=== PATIENT | male | born 1945 | race Caucasian/White ===

== ENCOUNTER 2017-10-08 10:13 | Outpatient (CLI) | payer MEDICARE, OTHER ==
--- NOTE | 2017-10-08 12:04 | CT ---
CT ABDOMEN AND PELVIS WITH AND WITHOUT IV CONTRAST: History: Abdominal pain. Crohn's disease. Prior surgeries. Comparison: 07-06-16 FINDINGS: Mild atelectasis and parenchymal scarring remain at each lung base. Hyperdense stone is apparent with in the gallbladder lumen. The spleen, kidneys, adrenal glands, and pancreas are within normal limits. Nonenlarged lymph nodes are scattered about the mesentery and retroperitoneum. Urinary bladder is de compressed. There is no evidence of bowel obstruction. Post-operative changes are apparent. Involving the distal ileum and extending to the terminal ileum, there is dilatation to 2.3 cm without significant wall thi ckening. At the level of the terminal ileum, there is circumferential wall thickening with subtle adj acent stranding and narrowing of the bowel lumen. No free air or abscess are apparent. Scattered diverticula arise from the colon without adjacent inflammation. There are prominent degener ative changes of the lumbar spine. IMPRESSION: 1. Inflammation of the distal ileum and terminal ileum with terminal ileal stricture. No significant obstruction. Appearance is typical for Crohn's disease. 2. Cholelithiasis. POS: IWONA
== END 2017-10-08 10:14 | disposition home or self-care (01) ==
LOC: CT 10:13
PROVIDERS: ATTEND Dentist Oral and Maxillofacial Surgery
DX: K50.90 Crohn's disease, unspecified, without complications (principal); K80.20 Calculus of gallbladder without cholecystitis without obstruction; K52.89 Other specified noninfective gastroenteritis and colitis
CPT/HCPCS: 74178

== ENCOUNTER 2017-12-30 08:32 | Outpatient (CLI) | payer MEDICARE, OTHER ==
--- NOTE | 2017-12-30 12:26 | RAD ---
SMALL BOWEL SERIES: Date: 12/30/17 HISTORY: Crohn's disease of the small intestine. Multiple surgeries. COMPARISON: 08/29/03. CORRELATION: Abdomen and pelvis CT dated 10/08/17. FINDINGS: Initial line up examiner radiograph demonstrates a large gallstone in the right upper quadrant, unchanged. Patie nt was administered barium, which does pass from the residual small bowel into the right hemicolon. T here is moderate dilatation of the remaining distal small bowel loops. This dilatation is just proxim al to a long segment area of narrowing. This area of narrowing appears to be involving the terminal i leum. The cecum and cecal apex are grossly unremarkable. IMPRESSION: Long segment narrowing of the distal ileum/terminal ileum. There is associated prominence of the smal l bowel loops proximal to this area of narrowing. No evidence of high grade obstruction as barium pas ses into the right hemicolon. This area of abnormality corresponds to findings on recent CT. POS: IWONA
== END 2017-12-30 08:33 | disposition home or self-care (01) ==
LOC: RAD 08:32
PROVIDERS: ATTEND Internal Medicine Gastroenterology
DX: K50.00 Crohn's disease of small intestine without complications (principal); K56.699 Other intestinal obstruction unspecified as to partial versus complete obstruction; K56.2 Volvulus
CPT/HCPCS: 74250

== ENCOUNTER 2018-01-09 09:12 | Inpatient (IN) | payer MEDICARE, OTHER ==
[~2018-01-09 09:12] MED LIST: ISOVUE-370 76%-LOCM 1 ML ONE
[2018-01-09 09:59] LABS: #Eosinphils 0.1 thou/uL (0.0-0.7); #Lymphocytes 0.9 thou/uL (1.20-3.40); #Monocytes 0.5 thou/uL (0.11-0.59); #Neutrophils 9.2 thou/uL (1.40-6.50); %Basophils 0.4 % (0.0-1.0); %Eosinophils 0.9 % (0.0-10.0); %Lymphocytes 8.4 % (21.0-51.0); %Monocytes 4.7 % (0.0-10.0); %Neutrophils 85.6 % (42.0-75.0); Hemoglobin 12.7 g/dL (14.0-18.0); Mean Corpuscular HGB CONC 32.2 g/dL (32.0-36.0); Mean Corpuscular Hemoglobin 30.3 pg (27.0-31.0); Mean Platelet Volume 6.8 fL (7.4-10.4); Platelet Count 257 thou/uL (130-400); RBC Distribution Width 15.2 % (11.5-14.5); White Blood Cell (WBC) Count 10.8 thou/uL (4.8-10.8)
[2018-01-09] MEDS ORDERED: Acetaminophen 325 MG TAB ONE (10:08)
[2018-01-09 10:20] LABS: ALT (SGPT) 24 U/L (8-55); AST (SGOT) 22 U/L (5-34); Albumin 3.5 g/dL (3.4-4.8); Alkaline Phosphatase 86 U/L (40-150); Anion Gap 9 mmol/L (10-20); BUN (Urea Nitrogen) 11 mg/dL (8.4-25.7); Bilirubin, Total 1.2 mg/dL (0.2-1.2); CK (CPK) 91 U/L (30-200); Calc. Creatinine Clearance 0 mL/min (70-130); Calcium 8.7 mg/dL (7.8-10.44); Carbon Dioxide 28 mmol/L (23-31); Chloride 98 mmol/L (98-107); Estimated GFR-MDRD 67; Glucose 96 mg/dL (83-110); Potassium 3.9 mmol/L (3.5-5.1); Protein, Total 6.5 g/dL (5.8-8.1); Sodium 131 mmol/L (136-145)
[2018-01-09 11:09] LABS: Bilirubin Small (Negative); Blood, Urine Negative (Negative); Glucose, Urine (Dipstick) Negative (Negative); Leukocyte Negative (Negative); Nitrite Negative (Negative); Protein, Urine (Dipstick) Negative (Neg-Trace); Urobilinogen 0.2 mg/dL (0.2-1.0); pH, Urine 7.5 (5.0-9.0)
[2018-01-09 11:10] LABS: Clarity Clear (Clear)
--- NOTE | 2018-01-09 11:38 | RAD ---
TWO VIEW CHEST: COMPARISON: 10/07/16. CLINICAL HISTORY: Fever. FINDINGS: There is abnormal biapical interstitial and pleural-based density. There is also a focal lucency wit hin the central left upper lung zone. An ovoid mass projects at the right upper lung zone, centrally . There is stable flattening and elevation of the right hemidiaphragm with blunting of the right cos tophrenic sulcus. Cardiac silhouette is stable. IMPRESSION: Abnormal biapical and upper lobe opacities including a mass-like opacity. This could be on the basis of pneumoconiosis versus other forms for atypical infection, or alternatively malignancy. Recommend pulmonary medicine consultation, as well as followup with CT of the chest. CODE T POS: IWONA
[2018-01-09] MEDS ORDERED: cefTRIAXone\\ROCEPHIN 2 GM VIAL ONE (12:28)
[2018-01-09] MEDS ORDERED: Azithromycin 500 MG VIAL ONE (12:28)
[2018-01-09] MEDS ORDERED: Sodium Chloride 0.9% 100 ML ONE (12:28)
--- NOTE | 2018-01-09 13:46 | CT ---
CTA CHEST WITH 3D VOLUME RENDERING: INDICATION: Fever. Abnormal chest radiograph performed same date. FINDINGS: No evidence of s significant filling defect to indicate pulmonary embolus. The thoracic aorta reveal s mild vascular calcification as do the coronary arteries. There is multifocal abnormal nodular parenchymal opacity as well as a mass-like area of opacification within the right upper lobe which contains small internal air bronchograms. Mass measures slightly greater than 4 cm in diameter. There is prominent pulmonary emphysema most notable within the bilate ral upper lobes. Emphysema within the left upper lobe is surrounded by ground-glass and nodular opac ities which does account for the cavitated appearance on preceding chest radiograph. There is a roun ded subpleural laterally located right lower lobe pulmonary nodule measuring 6 mm. Diffuse pleural i nterstitial prominence and ground-glass densities may relate to a superimposed fibrotic component of interstitial lung disease. There are bilateral pleural-based densities, more pronounced on the right . Incidental note of cholelithiasis. IMPRESSION: 1. No evidence of a pulmonary embolus. 2. Multifocal abnormality pulmonary parenchymal opacities including the mass-like area of consolidat ion at the right upper lobe. Findings may relate to atypical multifocal bilateral pneumonia. Other atypical etiologies for multinodular opacification including vasculidities should be excluded clinica lly. Malignancy is not excluded on the basis of this exam and therefore, followup upon completion of treatment regimen with CT thorax should be performed to document expected resolution. 3. Prominent pulmonary emphysema. 4. Incidental cholelithiasis. POS: IWONA
--- NOTE | 2018-01-09 14:35 | HP ---
PRIMARY CARE PHYSICIAN: Dr. Armando. CHIEF COMPLAINT: Fever and chills and generalized weakness. HISTORY OF PRESENT ILLNESS: Mr. Palomino is a pleasant 72-year-old gentleman that has a history of Cr ohn's disease. He was doing well until recently. He had some nausea and vomiting and had seen his g astroenterologist, Dr. Johnson with regards to this. There was concern that it could be a flare of his Crohn's disease and they did some lab work and then result the results of that showed some increase i nflammation and he was placed on a high dose of steroids with a rapid taper. 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 He had to trim some hedges a nd leaves and was sweating and working really hard. He had to do this in 3 days in a row and then on the last day, he felt kind of feverish and had some chills. He also noted some fever and the follow ing morning, he was so weak that he could barely get out of bed. His took his temperature and i t was 102.2 and for this reason, he came to the emergency room for evaluation. In the ER, he was fou nd to have some changes on his chest x-ray with some apical mass-like lesion. A CT angiogram was don e for further clarity on the chest x-ray findings and it was found that he has multifocal pneumonia a nd he is being admitted for this. The patient denies having any chest pain. He denies any cough or shortness of breath. He has maintained a fairly good appetite and denies any weight loss. REVIEW OF SYSTEMS: CONSTITUTIONAL: He has had subjective fever and chills, but no night sweats, no weight loss. HEENT: No headaches, no dizziness, no visual changes, no sore throat, rhinorrhea, neck pain, no adenopathy. PULMONARY: As per the history of present illness. Again, he denies any short ness of breath. No hemoptysis, no cough. CARDIOVASCULAR: No chest pain, no shortness of breath, no PND, no orthopnea. No lower extremity edema, no PND. GASTROINTESTINAL: He had some nausea and vom iting which has improved. He says that he believes that the vomiting and nausea was due to cholestyr amine which he had been taking for years, but he says it was starting to cause some constipation and he has since improved since discontinuing it. MUSCULOSKELETAL: No muscle pains, weakness or joint p ains. NEUROLOGIC: No focal weakness, numbness, no seizures. PSYCHIATRIC: No symptoms of anxiety o r depression. SKIN AND INTEGUMENT: No skin changes. No rash. PAST MEDICAL HISTORY: Significant for Crohn's disease, vitamin B12 deficiency and also has a history of pulmonary embolism which was diagnosed in 2016. PAST SURGICAL HISTORY: He has had colectomy. ALLERGIES: SULFA and OAK TREES. FAMILY HISTORY: Significant for lung cancer in his father as well as supranuclear palsy in his mothe r. SOCIAL HISTORY: He is a former smoker. He continues to do smoke E-cigarettes. No alcohol use. He is and his is his surrogate decision maker and he would like to be a FULL CODE. CURRENT MEDICATIONS: Include balsalazide 750 mg 3 times a day, prednisone he says he is on 15 mg dos e, Zyrtec 10 mg daily, vitamin B12 at 1000 mcg injection every 2 weeks, vitamin D3 1000 units daily, Centrum Silver, and Align 4 billion units daily. PHYSICAL EXAMINATION: VITAL SIGNS: Blood pressure has been on the lower side of 91/47, heart rate 87, respiratory rate of 20, temperature was 100.2. HEENT: He is actually well-developed and well-nourished. He appears to be in no acute distress. He states he has no symptoms related to the blood pressure being low and says lot of times his blood pr essure does tend to be on the lower side. HEENT: Pupils are equal, round, and reactive. Extraocular muscles are intact. Sclerae are anicteri c. Throat; no erythema, no exudates. NECK: No adenopathy, no bruits. LUNGS: Essentially clear to auscultation, no wheezing, no rales. CARDIOVASCULAR: He has a normal S1, S2. No S3 or S4. No murmurs, clicks or rubs. ABDOMEN: Soft, it is nontender, nondistended. Positive for bowel sounds. There is no rebound, no g uarding. EXTREMITIES: There is no clubbing, cyanosis, no edema. NEUROLOGIC: Neurologically, the exam is nonfocal. LABORATORY DATA AND IMAGING DATA: White blood cell count was 10.8, hemoglobin 12.7, hematocrit is 39 .5 and platelet count is 257. Sodium 131, potassium 3.9, chloride is 98, CO2 is 28, BUN of 11, creat inine 1.08, glucose is 96. C-reactive protein was 8.8. His chest x-ray had some changes associated with chronic obstructive pulmonary disease with flattening of the diaphragms. There was also an ovoi d mass in the right upper lung and there was some blunting of the right costophrenic angle. ASSESSMENT: 1. This is a pleasant 72-year-old gentleman who presents to the emergency room with fever and chills . His white count is normal, but he does have a left shift and he had radiographic evidence of a pos sible infiltrate; however, the shape and location of which are somewhat unusual, for this reason he i s being brought into the hospital. We will treat him for community-acquired pneumonia in that he has not had any recent hospitalizations and blood cultures have been obtained in the ER. We will also c onsult Pulmonology given the unusual characteristics of the pneumonia on chest x-ray and CT scan. 2. For Crohn's disease, the patient is currently undergoing a rapid taper. We will continue 15 mg a nd then likely just taper him daily by 5 mg as he is almost completed the taper. The patient will al so be placed on deep venous thrombosis and gastrointestinal prophylaxis.
[2018-01-09] MEDS ORDERED: Ondansetron ODT 4 MG TAB SL PRN (15:02)
[2018-01-09] MEDS ORDERED: Ondansetron HCl/PF 4 MG/2 ML Vial IVP PRN ×2 (15:02→15:33)
[2018-01-09] MEDS ORDERED: Sodium Chloride 0.9% 1,000 ML IV SCH (15:02)
[2018-01-09] MEDS ORDERED: Acetaminophen 325 MG TAB PO PRN ×2 (15:02→15:33)
[2018-01-09] MEDS ORDERED: Ondansetron ODT 4 MG TAB PO PRN (15:33)
[2018-01-09] MEDS ORDERED: cefTRIAXone\\ROCEPHIN 1 GM in Sodium Chloride 0.9% 100 ML IVPB SCH (15:33)
[2018-01-09] MEDS ORDERED: HYDROcodone/Acetaminophen 5/325 mg Tablet PO PRN (15:33)
[2018-01-09] MEDS ORDERED: Mag-Al 1200 mg/1200 mg/30 ML UDCUP PO PRN (15:33)
[2018-01-09] MEDS ORDERED: Sodium Chloride 0.9% 500 ML IV SCH (15:33)
[2018-01-09] MEDS: Sodium Chloride 0.9% 1,000 ML IV SCH (16:10)
[2018-01-09] MEDS ORDERED: FLU VACC TS2017-18 (>65YR) 0.5 ML SYRINGE IM ONE (16:15)
[2018-01-09] MEDS: Famotidine 20 MG TAB PO SCH (21:45)
[2018-01-10 05:52] LABS: #Eosinphils 0.1 thou/uL (0.0-0.7); #Lymphocytes 1.1 thou/uL (1.20-3.40); #Monocytes 0.3 thou/uL (0.11-0.59); #Neutrophils 8.3 thou/uL (1.40-6.50); %Basophils 0.2 % (0.0-1.0); %Eosinophils 1.4 % (0.0-10.0); %Lymphocytes 10.8 % (21.0-51.0); %Monocytes 2.8 % (0.0-10.0); %Neutrophils 84.8 % (42.0-75.0); Mean Corpuscular HGB CONC 32.5 g/dL (32.0-36.0); Mean Corpuscular Hemoglobin 30.3 pg (27.0-31.0); Mean Corpuscular Volume 93.4 fl (80.0-94.0); Platelet Count 203 thou/uL (130-400); Red Blood Cell (RBC) Count 3.63 mill/uL (4.70-6.10); White Blood Cell (WBC) Count 9.7 thou/uL (4.8-10.8)
[2018-01-10] MEDS: Sodium Chloride 0.9% 1,000 ML IV SCH ×3 (06:03→19:53)
[2018-01-10 06:18] LABS: Anion Gap 10 mmol/L (10-20); BUN (Urea Nitrogen) 9 mg/dL (8.4-25.7); Calc. Creatinine Clearance 70 mL/min (70-130); Calcium 7.9 mg/dL (7.8-10.44); Carbon Dioxide 22 mmol/L (23-31); Chloride 105 mmol/L (98-107); Estimated GFR-MDRD Greater than 90; Glucose 80 mg/dL (83-110); Potassium 3.6 mmol/L (3.5-5.1); Sodium 133 mmol/L (136-145)
[2018-01-10] MEDS ORDERED: Diphenoxylate HCl/Atropine Tablet PO PRN (07:13)
[2018-01-10] MEDS ORDERED: Eucerin (Mineral Oil/Petrolatum,White) 30 gm Jar TOP PRN (07:13)
[2018-01-10] MEDS ORDERED: Zolpidem Tartrate 5 MG TAB PO PRN (07:13)
[2018-01-10] MEDS ORDERED: Diabetic Tussin 200 MG/10 ML UDCUP PO PRN (07:13)
[2018-01-10] MEDS ORDERED: hydrALAZINE 20 MG/ML VIAL SLOW IVP PRN (07:13)
[2018-01-10] MEDS ORDERED: Sodium Chloride 0.65% Nasal 44 ML BOT EA NARE PRN (07:13)
[2018-01-10] MEDS ORDERED: Milk Of Magnesia 30 ML UDCUP PO PRN (07:13)
[2018-01-10] MEDS ORDERED: Loratadine 10 MG TAB PO PRN (07:13)
[2018-01-10] MEDS ORDERED: Senokot 8.6 MG TAB PO PRN (07:13)
[2018-01-10] MEDS ORDERED: Loperamide HCl 2 MG CAP PO PRN (07:13)
[2018-01-10] MEDS ORDERED: Artificial Tears 18 DROP/0.9 ML EA EYE PRN (07:13)
[2018-01-10] MEDS ORDERED: Chloraseptic Spray 180 ml Bottle PO PRN (07:13)
[2018-01-10] MEDS ORDERED: predniSONE 5 MG TAB PO SCH (08:00)
[2018-01-10] MEDS: Enoxaparin Sodium 40 MG/0.4 ML SYRINGE SC SCH (08:15)
[2018-01-10] MEDS ORDERED: Non-Formulary Item 1 EACH (Multivit-Min/Fa/Lycopen/Lutein [Centrum Silver Tablet] 1 TAB) PO SCH (09:00)
[2018-01-10] MEDS ORDERED: Non-Formulary Item 1 EACH (Bifidobacterium Infantis [Align] 4 MG) PO SCH (09:00)
[2018-01-10] MEDS ORDERED: Bifidobacterium Infantis [Align] 4 MG PO SCH (09:00)
[2018-01-10] MEDS ORDERED: FLU VACC TS2017-18 (>65YR) 0.5 ML SYRINGE IM ONE (09:00)
[2018-01-10] MEDS: Calcium Carbonate 600 MG TAB PO SCH (09:28)
[2018-01-10] MEDS: Famotidine 20 MG TAB PO SCH ×2 (09:29→19:51)
[2018-01-10] MEDS: Multivit, Therapeutic 1 TAB PO SCH (09:29)
--- NOTE | 2018-01-10 09:29 | CON ---
DATE OF CONSULTATION: 01/10/2018 SERVICE: Pulmonary Medicine. REASON FOR CONSULTATION: Pneumonia. HISTORY OF PRESENT ILLNESS: The patient is a 72-year-old white male with past medical history significant for Crohn's disease. Roughly 2-3 weeks ago, he started a new medication for the Crohn's disease. He had a little Crohn's flare. Apparently that was treated with a rapid steroid taper. Either way, all of that business improved. Roughly 1-2 days prior to presentation, he started having onset of fevers, malaise, and little myalgia. It came on in the context of him working outside. He just thought it was little dehydrated. That being said, he started running fevers to 102 degrees. He ultimately came to the emergency department. He was discovered to have findings consistent with pneumonia. As such, he was started on antibiotics. His strength seems to have improved at this point. He denies any fevers, chills, nausea, vomiting, or chest discomfort. Otherwise, there has been no interval change to his condition. PAST MEDICAL HISTORY: 1. Crohn's disease. 2. Vitamin B12 deficiency. 3. History of pulmonary embolism in 2016 status post over a year of anticoagulation, stopped in 06/2017. PAST SURGICAL HISTORY: Colectomy. ALLERGIES: SULFA, OAK TREES. MEDICATIONS: List of his inpatient and outpatient medications was reviewed. No specific updates were made at this time. SOCIAL HISTORY: He is a former smoker, but quit about 3-4 years ago. He now uses E-cigarettes on a daily basis. He denies any alcohol or illicit drug use. He has no exposure to chemicals, dust asbestos or tuberculosis otherwise. REVIEW OF SYSTEMS: General, head, ears, eyes, nose, throat, cardiovascular, respiratory, GI, , musculoskeletal, neurologic and skin is negative except as mentioned in the HPI. PHYSICAL EXAMINATION: VITAL SIGNS: Afebrile currently, but there was T-max overnight of 101.1, pulse 74, blood pressure 114/58, respirations 18, saturation 97% on room air. GENERAL: The patient is awake, alert, no apparent distress. LUNGS: Excellent air entry. There is no prolonged expiratory phase, wheezing, rhonchi or crackles. HEART: Normal rate and regular. ABDOMEN: Soft, nontender, nondistended. Bowel sounds are positive. MUSCULOSKELETAL: No cyanosis or clubbing. There is no pitting in the bilateral lower extremities. NEUROLOGIC: Grossly nonfocal. LABORATORY DATA: Sodium 133 and up trending. Basic metabolic profile is otherwise unremarkable. Liver function studies are normal. Lactate is negative. His CRP is 8.8. WBC 9.7, hemoglobin 11.0 and platelets 203,000. Urinalysis is unremarkable. Blood cultures x2 are negative. Influenza A and B is negative. IMAGIN. CT of the chest demonstrates multifocal infiltrates. There is a nodular infiltrate located in the right upper lobe. This is in the posterior segment of the right upper lobe. He also has interstitial fullness in the bibasilar region, possibly consistent with interstitial inflammatory changes. There appears to be some element of emphysematous changes superimposed on top of that. 2. I have reviewed the CT scan from 2 years ago. At that time, he had a small nodular infiltrate in the posterior segment of the right upper lobe. ASSESSMENT: 1. Community-acquired pneumonia. 2. Pulmonary nodule versus infiltrate, most predominantly displayed in the posterior segment of the right upper lobe. 3. Crohn's disease with recent medication change. 4. E-cigarette use. DISCUSSION AND PLAN: The patient presented with acute infectious symptoms. As such, we treat him with a 7-day course of antibiotics. Once he clears his fever profile, he can be converted over to p.o. medications and discharged home. He will require a repeat CT scan in roughly 6 weeks. At that time, if this infiltrate persists, bronchoscopy with possible biopsy will need to be considered. E-cigarettes have been known to cause lipoid pneumonias as well as other things. That is certainly within our differential. The new medication he is taking does not have a known association with inflammatory lung conditions , but it is known to cause flu-like illness, as well as increase the risk of bronchoscopy pneumonias. Pulmonary will continue to follow while the patient remains in this location. Dr. Wang will assume coverage in the morning. 70 minutes have been devoted to this patient in various activities. I personally reviewed all imaging studies and laboratory data noted within this document. For fifty percent of this time, I was interacting with the patient at the bedside or coordinating care with the care team. For the remainder of the time I was immediately available to the patient in the hospital unit. VERONIKA
--- NOTE | 2018-01-10 11:16 | PDOC.PN ---
- Subjective Encounter Start Date: 01/10/18 Encounter Start Time: 07:00 -: old records requested/rev Patient seen and examined. No new complaints. No overnight events feels better, on room air, no cough, fever reducing - Objective Resuscitation Status: Resuscitation Status FULL:Full Resuscitation MAR Reviewed: Yes Vital Signs & Weight: Vital Signs (12 hours) Temp Pulse Resp BP Pulse Ox 01/10/18 08:00 99.5 F 75 18 97/51 L 94 L 01/10/18 04:00 98.4 F 74 18 114/58 L 01/10/18 00:00 97 Weight Weight 124 lb 9 oz I&O: 01/09/18 01/10/18 01/11/18 06:59 06:59 06:59 Intake Total 240 Balance 240 Result Diagrams: 01/10/18 05:33 01/10/18 05:33 Radiology Reviewed by me: Yes (CT chest) Phys Exam - Physical Examination Constitutional: NAD HEENT: PERRLA, moist MMs, sclera anicteric Neck: no JVD, supple Respiratory: no wheezing, no rhonchi upper lobe broncheal breath sound Cardiovascular: RRR, no significant murmur, no rub Gastrointestinal: soft, non-tender, no distention, positive bowel sounds Musculoskeletal: no edema, pulses present Neurological: non-focal, normal sensation, moves all 4 limbs Lymphatic: no nodes Psychiatric: normal affect, A&O x 3 Skin: no rash, normal turgor Dx/Plan (1) Community acquired bacterial pneumonia Code(s): J15.9 - UNSPECIFIED BACTERIAL PNEUMONIA Status: Acute (2) Hyponatremia Code(s): E87.1 - HYPO-OSMOLALITY AND HYPONATREMIA Status: Acute (3) Anemia, normocytic normochromic Code(s): D64.9 - ANEMIA, UNSPECIFIED Status: Chronic (4) Crohn's disease Code(s): K50.90 - CROHN'S DISEASE, UNSPECIFIED, WITHOUT COMPLICATIONS Status: Chronic Comment: (5) History of deep venous thrombosis or pulmonary embolus Code(s): IQI6307 - Status: Chronic (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 * home medication reconciled * add florastor Review of Systems - Review of Systems Constitutional: fever. negative: chills, sweats, weakness, malaise, other ENT: negative: Ear Pain, Ear Discharge, Nose Pain, Nose Discharge, Nose Congestion, Mouth Pain, Mouth Swelling, Throat Pain, Throat Swelling, Other Respiratory: negative: Cough, Dry, Shortness of Breath, Hemoptysis, SOB with Excertion, Pleuritic Pain, Sputum, Wheezing Cardiovascular: negative: chest pain, palpitations, orthopnea, paroxysmal nocturnal dyspnea, edema, light headedness, other Gastrointestinal: negative: Nausea, Vomiting, Abdominal Pain, Diarrhea, Constipation, Melena, Hematochezia, Other Genitourinary: negative: Dysuria, Frequency, Incontinence, Hematuria, Retention , Other Musculoskeletal: negative: Neck Pain, Shoulder Pain, Arm Pain, Back Pain, Hand Pain, Leg Pain, Foot Pain, Other Skin: negative: Rash, Lesions, Fran, Bruising, Other Neurological: negative: Weakness, Numbness, Incoordination, Change in Speech, Confusion, Seizures, Other - Medications/Allergies Allergies/Adverse Reactions: Allergies Allergy/AdvReac Type Severity Reaction Status Date / Time Sulfa (Sulfonamide Allergy Verified 07/06/16 22:32 Antibiotics) Medications: Current Medications Acetaminophen (Tylenol) 650 mg PO Q4H PRN PRN Reason: Headache/Fever or Pain Hydrocodone Bitart/Acetaminophen (Ruffin 5/325) 1 tab PO Q4H PRN PRN Reason: Moderate Pain (4-6) Al Hydroxide/Mg Hydroxide (Maalox) 30 ml PO Q6H PRN PRN Reason: Heartburn or Indigestion Artificial Tears (Tears Naturale) 0 drop EA EYE PRN PRN PRN Reason: Dry Eyes Aspirin (Aspirin Chewable) 81 mg PO DAILY [facility] Last Admin: 01/10/18 09:29 Dose: 81 mg Balsalazide (Colazal) 2,250 mg PO TID [facility] Calcium Carbonate (Caltrate) 600 mg PO DAILY [facility] Last Admin: 01/10/18 09:28 Dose: 600 mg Diphenoxylate HCl/Atropine (Lomotil) 1 tab PO QIDPRN PRN PRN Reason: Diarrhea/Loose Stools Enoxaparin Sodium (Lovenox) 40 mg SC 0900 [facility] Last Admin: 01/10/18 08:15 Dose: 40 mg Famotidine (Pepcid) 20 mg PO BID [facility] Last Admin: 01/10/18 09:29 Dose: 20 mg Guaifenesin (Robitussin Sf) 200 mg PO Q4H PRN PRN Reason: Cough Hydralazine HCl (Apresoline) 10 mg SLOW IVP Q4H PRN PRN Reason: Systolic BP > 180 Azithromycin 500 mg/ Sodium (Chloride) 250 mls @ 250 mls/hr IVPB Q24HR@1400 [facility] Sodium Chloride (Normal Saline 0.9%) 1,000 mls @ 100 mls/hr IV .Q10H [facility] Last Admin: 01/10/18 08:21 Dose: 1,000 mls Ceftriaxone Sodium 1 gm/ (Syringe 0.4 ml/ Sterile Water) 10 mls @ 120 mls/hr SLOW IVP 1300 [facility] Loperamide HCl (Imodium) 2 mg PO PRN PRN PRN Reason: Diarrhea/Loose Stools Loratadine (Claritin) 10 mg PO DAILYPRN PRN PRN Reason: Sinus Symptoms Magnesium Hydroxide (Milk Of Magnesium) 30 ml PO DAILYPRN PRN PRN Reason: Constipation Mineral Oil/White Petrolatum (Eucerin Cream) 0 gm TOP BIDPRN PRN PRN Reason: Dry Skin Multivitamins (Theragran) 1 tab PO DAILY [facility] Last Admin: 01/10/18 09:29 Dose: 1 tab Ondansetron HCl (Zofran Odt) 4 mg PO Q6H PRN PRN Reason: Nausea/Vomiting Ondansetron HCl (Zofran) 4 mg IVP Q6H PRN PRN Reason: Nausea/Vomiting Bifidobacterium Infantis [Align] 4 Mg 0 each PO DAILY [facility] Phenol (Chloraseptic [place] 180 Ml Bot) 0 ml PO PRN PRN PRN Reason: Sore Throat Senna (Senokot) 2 tab PO HSPRN PRN PRN Reason: Constipation Sodium Chloride ([place] Nasal [place] 0.65%) 0 ml EA NARE QIDPRN PRN PRN Reason: Nasal Congestion Sodium Chloride (Flush - Normal Saline) 10 ml IVF Q12HR [facility] Last Admin: 01/10/18 08:13 Dose: Not Given Sodium Chloride (Flush - Normal Saline) 10 ml IVF PRN PRN PRN Reason: Saline Flush Zolpidem Tartrate (Ambien) 5 mg PO HSPRN PRN PRN Reason: Insomnia
[2018-01-10] MEDS: cefTRIAXone\\ROCEPHIN 1 GM, Syringe 0.4 ML in Sterile Water 9.6 ML SLOW IVP SCH (13:00)
[2018-01-10] MEDS: Azithromycin 500 MG in Sodium Chloride 0.9% 250 ML 250 ML IVPB SCH (14:19)
[2018-01-11] MEDS: Sodium Chloride 0.9% 1,000 ML IV SCH ×3 (05:55→17:34)
[2018-01-11 05:56] LABS: #Eosinphils 0.1 thou/uL (0.0-0.7); #Lymphocytes 1.4 thou/uL (1.20-3.40); #Monocytes 0.4 thou/uL (0.11-0.59); #Neutrophils 4.3 thou/uL (1.40-6.50); %Basophils 0.4 % (0.0-1.0); %Eosinophils 1.7 % (0.0-10.0); %Lymphocytes 22.5 % (21.0-51.0); %Monocytes 6.5 % (0.0-10.0); Mean Corpuscular HGB CONC 31.6 g/dL (32.0-36.0); Mean Corpuscular Hemoglobin 30.6 pg (27.0-31.0); Mean Corpuscular Volume 96.9 fl (80.0-94.0); Mean Platelet Volume 7.4 fL (7.4-10.4); Platelet Count 177 thou/uL (130-400); Red Blood Cell (RBC) Count 3.25 mill/uL (4.70-6.10); White Blood Cell (WBC) Count 6.3 thou/uL (4.8-10.8)
[2018-01-11 06:30] LABS: Anion Gap 7 mmol/L (10-20); BUN (Urea Nitrogen) 8 mg/dL (8.4-25.7); Calc. Creatinine Clearance 80 mL/min (70-130); Calcium 7.9 mg/dL (7.8-10.44); Carbon Dioxide 23 mmol/L (23-31); Chloride 112 mmol/L (98-107); Estimated GFR-MDRD Greater than 90; Glucose 83 mg/dL (83-110); Potassium 3.3 mmol/L (3.5-5.1); Sodium 139 mmol/L (136-145)
[2018-01-11] MEDS: Calcium Carbonate 600 MG TAB PO SCH (08:54)
[2018-01-11] MEDS: Saccharomyces boulardii 250 MG CAP PO SCH (08:54)
[2018-01-11] MEDS: Multivit, Therapeutic 1 TAB PO SCH (08:54)
[2018-01-11] MEDS: Famotidine 20 MG TAB PO SCH ×2 (08:54→20:47)
[2018-01-11] MEDS: Enoxaparin Sodium 40 MG/0.4 ML SYRINGE SC SCH (08:55)
--- NOTE | 2018-01-11 10:05 | PDOC.PN ---
- Subjective Encounter Start Date: 01/11/18 Encounter Start Time: 07:20 Patient seen and examined. No new complaints. No overnight events - Objective Resuscitation Status: Resuscitation Status FULL:Full Resuscitation MAR Reviewed: Yes Vital Signs & Weight: Vital Signs (12 hours) Temp Pulse Resp BP Pulse Ox 01/11/18 04:00 97.6 F 01/10/18 23:24 97.5 F L 69 18 116/68 97 Weight Weight 136 lb I&O: 01/10/18 01/11/18 01/12/18 06:59 06:59 06:59 Intake Total 240 1390 Balance 240 1390 Result Diagrams: 01/11/18 05:32 01/11/18 05:32 Phys Exam - Physical Examination Constitutional: NAD HEENT: PERRLA, moist MMs, sclera anicteric Neck: no JVD, supple Respiratory: no wheezing, no rhonchi basal rales Cardiovascular: RRR, no significant murmur, no rub Gastrointestinal: soft, non-tender, no distention, positive bowel sounds Musculoskeletal: no edema, pulses present Neurological: non-focal, normal sensation, moves all 4 limbs Psychiatric: normal affect, A&O x 3 Skin: no rash, normal turgor Dx/Plan (1) Community acquired bacterial pneumonia Code(s): J15.9 - UNSPECIFIED BACTERIAL PNEUMONIA Status: Acute (2) Hyponatremia Code(s): E87.1 - HYPO-OSMOLALITY AND HYPONATREMIA Status: Acute (3) Anemia, normocytic normochromic Code(s): D64.9 - ANEMIA, UNSPECIFIED Status: Chronic (4) Crohn's disease Code(s): K50.90 - CROHN'S DISEASE, UNSPECIFIED, WITHOUT COMPLICATIONS Status: Chronic Comment: (5) History of deep venous thrombosis or pulmonary embolus Code(s): LRS7078 - Status: Chronic (6) Short bowel syndrome Code(s): 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 Review of Systems - Review of Systems ENT: negative: Ear Pain, Ear Discharge, Nose Pain, Nose Discharge, Nose Congestion, Mouth Pain, Mouth Swelling, Throat Pain, Throat Swelling, Other Respiratory: negative: Cough, Dry, Shortness of Breath, Hemoptysis, SOB with Excertion, Pleuritic Pain, Sputum, Wheezing Cardiovascular: negative: chest pain, palpitations, orthopnea, paroxysmal nocturnal dyspnea, edema, light headedness, other Gastrointestinal: negative: Nausea, Vomiting, Abdominal Pain, Diarrhea, Constipation, Melena, Hematochezia, Other Genitourinary: negative: Dysuria, Frequency, Incontinence, Hematuria, Retention , Other Musculoskeletal: negative: Neck Pain, Shoulder Pain, Arm Pain, Back Pain, Hand Pain, Leg Pain, Foot Pain, Other Skin: negative: Rash, Lesions, Fran, Bruising, Other - Medications/Allergies Allergies/Adverse Reactions: Allergies Allergy/AdvReac Type Severity Reaction Status Date / Time Sulfa (Sulfonamide Allergy Verified 07/06/16 22:32 Antibiotics) Medications: Current Medications Acetaminophen (Tylenol) 650 mg PO Q4H PRN PRN Reason: Headache/Fever or Pain Hydrocodone Bitart/Acetaminophen ([place] 5/325) 1 tab PO Q4H PRN PRN Reason: Moderate Pain (4-6) Al Hydroxide/Mg Hydroxide (Maalox) 30 ml PO Q6H PRN PRN Reason: Heartburn or Indigestion Artificial Tears (Tears Naturale) 0 drop EA EYE PRN PRN PRN Reason: Dry Eyes Aspirin (Aspirin Chewable) 81 mg PO DAILY [facility] Last Admin: 01/11/18 08:56 Dose: 81 mg Balsalazide (Colazal) 2,250 mg PO TID [facility] Last Admin: 01/11/18 08:53 Dose: 2,250 mg Calcium Carbonate (Caltrate) 600 mg PO DAILY [facility] Last Admin: 01/11/18 08:54 Dose: 600 mg Diphenoxylate HCl/Atropine (Lomotil) 1 tab PO QIDPRN PRN PRN Reason: Diarrhea/Loose Stools Enoxaparin Sodium (Lovenox) 40 mg SC 0900 [facility] Last Admin: 01/11/18 08:55 Dose: 40 mg Famotidine (Pepcid) 20 mg PO BID [facility] Last Admin: 01/11/18 08:54 Dose: 20 mg Guaifenesin (Robitussin Sf) 200 mg PO Q4H PRN PRN Reason: Cough Hydralazine HCl (Apresoline) 10 mg SLOW IVP Q4H PRN PRN Reason: Systolic BP > 180 Azithromycin 500 mg/ Sodium (Chloride) 250 mls @ 250 mls/hr IVPB Q24HR@1400 [facility] Last Admin: 01/10/18 14:19 Dose: 250 mls Sodium Chloride (Normal Saline 0.9%) 1,000 mls @ 100 mls/hr IV .Q10H [facility] Last Admin: 01/11/18 05:55 Dose: 1,000 mls Ceftriaxone Sodium 1 gm/ (Syringe 0.4 ml/ Sterile Water) 10 mls @ 120 mls/hr SLOW IVP 1300 [facility] Last Admin: 01/10/18 13:00 Dose: 10 mls Loperamide HCl (Imodium) 2 mg PO PRN PRN PRN Reason: Diarrhea/Loose Stools Loratadine (Claritin) 10 mg PO DAILYPRN PRN PRN Reason: Sinus Symptoms Magnesium Hydroxide (Milk Of Magnesium) 30 ml PO DAILYPRN PRN PRN Reason: Constipation Mineral Oil/White Petrolatum (Eucerin Cream) 0 gm TOP BIDPRN PRN PRN Reason: Dry Skin Multivitamins (Theragran) 1 tab PO DAILY [facility] Last Admin: 01/11/18 08:54 Dose: 1 tab Ondansetron HCl (Zofran Odt) 4 mg PO Q6H PRN PRN Reason: Nausea/Vomiting Ondansetron HCl (Zofran) 4 mg IVP Q6H PRN PRN Reason: Nausea/Vomiting Phenol (Chloraseptic [place] 180 Ml Bot) 0 ml PO PRN PRN PRN Reason: Sore Throat Saccharomyces Boulardii (Florastor) 250 mg PO DAILY [facility] Last Admin: 01/11/18 08:54 Dose: 250 mg Senna (Senokot) 2 tab PO HSPRN PRN PRN Reason: Constipation Sodium Chloride ([place] Nasal [place] 0.65%) 0 ml EA NARE QIDPRN PRN PRN Reason: Nasal Congestion Sodium Chloride (Flush - Normal Saline) 10 ml IVF Q12HR [facility] Last Admin: 01/11/18 08:56 Dose: Not Given Sodium Chloride (Flush - Normal Saline) 10 ml IVF PRN PRN PRN Reason: Saline Flush Last Admin: 01/10/18 13:09 Dose: 10 ml Zolpidem Tartrate (Ambien) 5 mg PO HSPRN PRN PRN Reason: Insomnia
[2018-01-11 11:19] VITALS: BMI 18.9
[2018-01-11] MEDS: cefTRIAXone\\ROCEPHIN 1 GM, Syringe 0.4 ML in Sterile Water 9.6 ML SLOW IVP SCH (11:26)
[2018-01-11] MEDS: Azithromycin 500 MG in Sodium Chloride 0.9% 250 ML 250 ML IVPB SCH (11:29)
--- NOTE | 2018-01-11 13:31 | DIS ---
DATE OF ADMISSION: 01/09/2018 DATE OF DISCHARGE: 01/11/2018 PRIMARY CARE PHYSICIAN: Dr. Alberto Armando. DISCHARGE DISPOSITION: Home. PRIMARY DISCHARGE DIAGNOSES: Community-acquired bacterial pneumonia, hyponatremia. SECONDARY DISCHARGE DIAGNOSES: Crohn's disease, history of deep venous thrombosis or pulmonary embol ism, short bowel syndrome, vitamin B12 deficiency. PRIMARY PROCEDURE/OPERATION: None. RADIOLOGICAL INVESTIGATION: Chest x-ray on admission showed biapical and upper lobe opacity. CT ang iography was negative for pulmonary embolism, but it did show multifocal opacity in the right upper l obe emphysema type of changes, cholelithiasis. SIGNIFICANT LABORATORY DATA: WBC 6.3, hemoglobin 10.0, platelet 177. Sodium 139, potassium 3.3, BUN 8, creatinine 0.74, calcium 7.9. LFT normal. CRP 8.8. Urinalysis normal. Blood culture negative, influenza negative. DISCHARGE MEDICATIONS: Aspirin 81 mg p.o. daily, azithromycin 250 mg p.o. daily for 5 days, balsalaz enrrique 750 mg p.o. t.i.d., align 4 mg p.o. daily, calcium carbonate 600 mg p.o. daily, Omnicef 300 mg p. o. b.i.d. for 7 days, vitamin B12 1000 mcg IM every 2 weeks, multivitamin 1 tablet p.o. daily. CONTRAINDICATIONS: None. CODE STATUS: FULL CODE. INPATIENT CONSULTANTS: Dr. Everett and Dr. Wang were following while in hospital. TEST RESULTS PENDING ON DISCHARGE: None. ALLERGIES: SULFA DRUGS. DISCHARGE PLAN: Post hospital, patient will follow up with Dr. Wang and primary care physician as w ell as Dr. Johnson as instructed. The patient will need repeat imaging upon followup visit. HOSPITAL COURSE: A 72-year-old male with above-mentioned medical problem who was admitted by Dr. Ghada garcia. Please see her H&P for further detail. The patient was having fever, chills, generalized weakn ess and cough. He was diagnosed with right upper lobe and multifocal pneumonia. The patient was adm itted to Oncology floor. He was treated with Rocephin and azithromycin. His fever subsided and the patient was feeling much better after antibiotic therapy. By the time of discharge, he was on room a ir. He was tolerating p.o. well and he was not having any complaints. The patient expressed wish to go home today. We are waiting for Dr. Wang to decide about his discharge plan. On discharge, we w ill consider changing to Omnicef to azithromycin. The patient will need repeat imaging. At this point, the patient is seen and examined at bedside today. Plan of care discussed with the marlon aguilar's as well and patient is medically stable for discharge as long as Pulmonary team is okay. Please see my progress note from today for further detail.
[2018-01-12] MEDS: Sodium Chloride 0.9% 1,000 ML IV SCH ×2 (02:58→12:58)
[2018-01-12 07:58] VITALS: BP 117/56; TEMP 97.9
[2018-01-12] MEDS: Calcium Carbonate 600 MG TAB PO SCH (08:57)
[2018-01-12] MEDS: Famotidine 20 MG TAB PO SCH (08:58)
[2018-01-12] MEDS: Saccharomyces boulardii 250 MG CAP PO SCH (08:59)
[2018-01-12] MEDS: Multivit, Therapeutic 1 TAB PO SCH (08:59)
[2018-01-12] MEDS: Enoxaparin Sodium 40 MG/0.4 ML SYRINGE SC SCH (09:00)
--- NOTE | 2018-01-12 12:58 | ADD-DIS ---
ADDENDUM This patient was planned for discharge yesterday, but he was waiting for Dr. Wang to come and see. This patient is otherwise medically stable. Today, he had diarrhea with antibiotic therapy and that is why I advised him to continue Imodium on as needed basis. This patient is stable. He is on room air. He is planned for discharge later on today. He will continue above-mentioned medication. Ther e is no change in discharge medication reconciliation.
[2018-01-12] MEDS: cefTRIAXone\\ROCEPHIN 1 GM, Syringe 0.4 ML in Sterile Water 9.6 ML SLOW IVP SCH (13:00)
--- NOTE | 2018-01-12 13:11 | PDOC.PN ---
- Subjective Encounter Start Date: 01/12/18 Encounter Start Time: 10:45 Patient seen and examined. No new complaints. No overnight events - Objective Resuscitation Status: Resuscitation Status FULL:Full Resuscitation MAR Reviewed: Yes Vital Signs & Weight: Vital Signs (12 hours) Temp Pulse Resp BP Pulse Ox 01/12/18 08:30 97.9 F 66 20 97 01/12/18 07:57 97.9 F 66 20 117/56 L 97 Weight Admit Weight 124 lb 9 oz Weight 136 lb I&O: 01/11/18 01/12/18 01/13/18 06:59 06:59 06:59 Intake Total 1390 2470 Balance 1390 2470 Result Diagrams: 01/11/18 05:32 01/11/18 05:32 Phys Exam - Physical Examination Constitutional: NAD HEENT: PERRLA, moist MMs, sclera anicteric Neck: no JVD, supple Respiratory: no wheezing, no rales, no rhonchi Cardiovascular: RRR, no significant murmur, no rub Gastrointestinal: soft, non-tender, no distention, positive bowel sounds Musculoskeletal: no edema, pulses present Neurological: non-focal, normal sensation, moves all 4 limbs Psychiatric: normal affect, A&O x 3 Skin: no rash, normal turgor Dx/Plan (1) Community acquired bacterial pneumonia Code(s): J15.9 - UNSPECIFIED BACTERIAL PNEUMONIA Status: Acute (2) Hyponatremia Code(s): E87.1 - HYPO-OSMOLALITY AND HYPONATREMIA Status: Acute (3) Anemia, normocytic normochromic Code(s): D64.9 - ANEMIA, UNSPECIFIED Status: Chronic (4) Crohn's disease Code(s): K50.90 - CROHN'S DISEASE, UNSPECIFIED, WITHOUT COMPLICATIONS Status: Chronic Comment: (5) History of deep venous thrombosis or pulmonary embolus Code(s): IML6231 - Status: Chronic (6) Short bowel syndrome Code(s): K91.2 - POSTSURGICAL MALABSORPTION, NOT ELSEWHERE CLASSIFIED Status: Chronic (7) Vitamin B12 deficiency Code(s): E53.8 - DEFICIENCY OF OTHER SPECIFIED B GROUP VITAMINS Status: Chronic - Plan cont current plan of care, plan discussed w/ family, continue antibiotics * medication reviewed as below * symptomatic treatment * continue current antibiotics * likely discharge today * imodium as needed for diarrhoea. Review of Systems - Review of Systems Constitutional: negative: fever, chills, sweats, weakness, malaise, other Eyes: negative: Pain, Vision Change, Conjunctivae Inflammation, Eyelid Inflammation, Redness, Other ENT: negative: Ear Pain, Ear Discharge, Nose Pain, Nose Discharge, Nose Congestion, Mouth Pain, Mouth Swelling, Throat Pain, Throat Swelling, Other Respiratory: negative: Cough, Dry, Shortness of Breath, Hemoptysis, SOB with Excertion, Pleuritic Pain, Sputum, Wheezing Cardiovascular: negative: chest pain, palpitations, orthopnea, paroxysmal nocturnal dyspnea, edema, light headedness, other Gastrointestinal: Diarrhea. negative: Nausea, Vomiting, Abdominal Pain, Constipation, Melena, Hematochezia, Other Genitourinary: negative: Dysuria, Frequency, Incontinence, Hematuria, Retention , Other Musculoskeletal: negative: Neck Pain, Shoulder Pain, Arm Pain, Back Pain, Hand Pain, Leg Pain, Foot Pain, Other Skin: negative: Rash, Lesions, Fran, Bruising, Other - Medications/Allergies Allergies/Adverse Reactions: Allergies Allergy/AdvReac Type Severity Reaction Status Date / Time Sulfa (Sulfonamide Allergy Verified 07/06/16 22:32 Antibiotics) Medications: Current Medications Acetaminophen (Tylenol) 650 mg PO Q4H PRN PRN Reason: Headache/Fever or Pain Hydrocodone Bitart/Acetaminophen ([place] 5/325) 1 tab PO Q4H PRN PRN Reason: Moderate Pain (4-6) Al Hydroxide/Mg Hydroxide (Maalox) 30 ml PO Q6H PRN PRN Reason: Heartburn or Indigestion Artificial Tears (Tears Naturale) 0 drop EA EYE PRN PRN PRN Reason: Dry Eyes Aspirin (Aspirin Chewable) 81 mg PO DAILY [facility] Last Admin: 01/12/18 08:59 Dose: 81 mg Balsalazide (Colazal) 2,250 mg PO TID [facility] Last Admin: 01/12/18 08:59 Dose: 2,250 mg Calcium Carbonate (Caltrate) 600 mg PO DAILY [facility] Last Admin: 01/12/18 08:57 Dose: Not Given Diphenoxylate HCl/Atropine (Lomotil) 1 tab PO QIDPRN PRN PRN Reason: Diarrhea/Loose Stools Enoxaparin Sodium (Lovenox) 40 mg SC 0900 [facility] Last Admin: 01/12/18 09:00 Dose: 40 mg Famotidine (Pepcid) 20 mg PO BID [facility] Last Admin: 01/12/18 08:58 Dose: Not Given Guaifenesin (Robitussin Sf) 200 mg PO Q4H PRN PRN Reason: Cough Hydralazine HCl (Apresoline) 10 mg SLOW IVP Q4H PRN PRN Reason: Systolic BP > 180 Azithromycin 500 mg/ Sodium (Chloride) 250 mls @ 250 mls/hr IVPB Q24HR@1400 [facility] Last Admin: 01/11/18 11:29 Dose: 250 mls Sodium Chloride (Normal Saline 0.9%) 1,000 mls @ 100 mls/hr IV .Q10H [facility] Last Admin: 01/12/18 12:58 Dose: 1,000 mls Ceftriaxone Sodium 1 gm/ (Syringe 0.4 ml/ Sterile Water) 10 mls @ 120 mls/hr SLOW IVP 1300 [facility] Last Admin: 01/12/18 13:00 Dose: 10 mls Loperamide HCl (Imodium) 2 mg PO PRN PRN PRN Reason: Diarrhea/Loose Stools Last Admin: 01/12/18 13:02 Dose: 2 mg Loratadine (Claritin) 10 mg PO DAILYPRN PRN PRN Reason: Sinus Symptoms Magnesium Hydroxide (Milk Of Magnesium) 30 ml PO DAILYPRN PRN PRN Reason: Constipation Mineral Oil/White Petrolatum (Eucerin Cream) 0 gm TOP BIDPRN PRN PRN Reason: Dry Skin Multivitamins (Theragran) 1 tab PO DAILY [facility] Last Admin: 01/12/18 08:59 Dose: 1 tab Ondansetron HCl (Zofran Odt) 4 mg PO Q6H PRN PRN Reason: Nausea/Vomiting Ondansetron HCl (Zofran) 4 mg IVP Q6H PRN PRN Reason: Nausea/Vomiting Phenol (Chloraseptic [place] 180 Ml Bot) 0 ml PO PRN PRN PRN Reason: Sore Throat Saccharomyces Boulardii (Florastor) 250 mg PO DAILY [facility] Last Admin: 01/12/18 08:59 Dose: 250 mg Senna (Senokot) 2 tab PO HSPRN PRN PRN Reason: Constipation Sodium Chloride ([place] Nasal [place] 0.65%) 0 ml EA NARE QIDPRN PRN PRN Reason: Nasal Congestion Sodium Chloride (Flush - Normal Saline) 10 ml IVF Q12HR [facility] Last Admin: 01/12/18 09:01 Dose: Not Given Sodium Chloride (Flush - Normal Saline) 10 ml IVF PRN PRN PRN Reason: Saline Flush Last Admin: 01/10/18 13:09 Dose: 10 ml Zolpidem Tartrate (Ambien) 5 mg PO HSPRN PRN PRN Reason: Insomnia
[2018-01-12] MEDS: Azithromycin 500 MG in Sodium Chloride 0.9% 250 ML 250 ML IVPB SCH (14:20)
== END 2018-01-12 16:42 | disposition home or self-care (01) | DRG 194 ==
LOC: ERS 09:12 → ONC 14:02
PROVIDERS: ADMIT Internal Medicine; ATTEND Internal Medicine
DX: Z86.711 Personal history of pulmonary embolism; E87.1 Hypo-osmolality and hyponatremia; J15.9 Unspecified bacterial pneumonia; E53.8 Deficiency of other specified B group vitamins; K50.90 Crohn's disease, unspecified, without complications; K91.2 Postsurgical malabsorption, not elsewhere classified; Z87.891 Personal history of nicotine dependence; D64.9 Anemia, unspecified
CPT/HCPCS: 36415; 71046; 71275; 80048; 80053; 81003; 82550; 83605; 85025; 86140; 87040; 87804; 90471; 90682; 94760; 96361; 96365; 96367; A4216; G0008; J0456; J0696; J1650; J7050; J8499; Q2036

== ENCOUNTER 2018-01-20 10:11 | Outpatient (CLI) | payer MEDICARE, OTHER ==
--- NOTE | 2018-01-20 11:30 | RAD ---
PA AND LATERAL CHEST RADIOGRAPH: Date: 01-20-18 History: Dyspnea. Comparison: 01-09-18 FINDINGS: There are increased interstitial and patchy parenchymal densities seen within the upper lobes bilater ally similar to the prior exam with greater parenchymal opacity within the right upper lobe. Again, f indings may be related to pneumonia and possibly atypical pneumonia. Follow up to complete resolution is recommended. There is stable pleural and parenchymal changes right lung base, probably related to small right pleural effusion and atelectasis. The cardiac silhouette and pulmonary vasculature are within normal limits. There is no other interval change. IMPRESSION: 1. Linear and patchy parenchymal opacities in the bilateral upper lobes with stable mass like opacity in the right upper lobe. These findings may be related to multifocal pneumonia and possibly atypical pneumonia. However, follow up to complete resolution is recommended to exclude neoplastic process. 2. Mild chronic lung changes. 3. Small right pleural effusion and atelectasis. POS: [facility]
== END 2018-01-20 10:12 | disposition home or self-care (01) ==
LOC: RAD 10:11
PROVIDERS: ATTEND Internal Medicine Critical Care Medicine
DX: R06.00 Dyspnea, unspecified (principal); J90 Pleural effusion, not elsewhere classified; J98.11 Atelectasis; R91.8 Other nonspecific abnormal finding of lung field
CPT/HCPCS: 71046

== ENCOUNTER 2018-01-22 18:36 | Inpatient (IN) | payer MEDICARE, OTHER ==
[2018-01-22 19:14] LABS: #Basophils 0.1 thou/uL (0.0-0.2); #Eosinphils 0.1 thou/uL (0.0-0.7); #Lymphocytes 1.1 thou/uL (1.20-3.40); #Monocytes 0.4 thou/uL (0.11-0.59); #Neutrophils 5.7 thou/uL (1.40-6.50); %Basophils 0.8 % (0.0-1.0); %Eosinophils 1.4 % (0.0-10.0); %Lymphocytes 14.7 % (21.0-51.0); %Monocytes 5.4 % (0.0-10.0); %Neutrophils 77.8 % (42.0-75.0); Mean Corpuscular Hemoglobin 30.2 pg (27.0-31.0); Mean Corpuscular Volume 94.4 fl (80.0-94.0); Mean Platelet Volume 6.4 fL (7.4-10.4); Platelet Count 524 thou/uL (130-400); RBC Distribution Width 14.5 % (11.5-14.5); Red Blood Cell (RBC) Count 3.96 mill/uL (4.70-6.10); White Blood Cell (WBC) Count 7.4 thou/uL (4.8-10.8)
--- NOTE | 2018-01-22 19:33 | RAD ---
SINGLE VIEW OF THE CHEST: 01/22/18 COMPARISON: 01/22/18, CT chest 01/09/18. HISTORY: Pneumonia with fever. Patient was recently hospitalized. FINDINGS: Single view of the chest shows a normal sized cardiomediastinal silhouette. Increased interstitial ma rkings are present. There appear to be air space opacity projecting over the upper lobes. One of thes e areas over the right upper lobe remains mass-like. This measures approximately 3.3 cm in size. No p leural effusion is seen. IMPRESSION: Bilateral upper lobe opacities may represent infiltrates. The lesion in the right upper lobe is suspi cious and close followup after treatment is recommended to exclude an underlying malignancy. POS: [facility]
[2018-01-22 19:36] LABS: ALT (SGPT) 10 U/L (8-55); AST (SGOT) 19 U/L (5-34); Albumin 3.4 g/dL (3.4-4.8); Alkaline Phosphatase 136 U/L (40-150); Anion Gap 16 mmol/L (10-20); BUN (Urea Nitrogen) 6 mg/dL (8.4-25.7); Bilirubin, Total 0.9 mg/dL (0.2-1.2); CK (CPK) 58 U/L (30-200); Calc. Creatinine Clearance 0 mL/min (70-130); Calcium 8.8 mg/dL (7.8-10.44); Carbon Dioxide 26 mmol/L (23-31); Chloride 99 mmol/L (98-107); Estimated GFR-MDRD Greater than 90; Globulin 3.7 g/dL (2.4-3.5); Glucose 99 mg/dL (83-110); Protein, Total 7.1 g/dL (5.8-8.1); Sodium 138 mmol/L (136-145)
[2018-01-22 19:39] LABS: CKMB 0.4 ng/mL (0-6.6); Potassium 2.5 mmol/L (3.5-5.1)
[2018-01-22] MEDS ORDERED: Acetaminophen 325 MG TAB ONE (20:03)
[2018-01-22] MEDS ORDERED: Piperacillin/Tazobactam 4.5 GM VIAL ONE (20:03)
[2018-01-22] MEDS ORDERED: Piperacillin/Tazobactam 4.5 GM in Sodium Chloride 0.9% 100 ML IVPB ONE (20:15)
[2018-01-22] MEDS ORDERED: Sodium Chloride 0.9% 1,000 ML IV SCH (21:30)
[2018-01-22] MEDS ORDERED: Ondansetron ODT 4 MG TAB PO PRN (21:53)
[2018-01-22] MEDS ORDERED: Acetaminophen 325 MG TAB PO PRN (21:53)
[2018-01-22] MEDS ORDERED: hydrALAZINE 20 MG/ML VIAL SLOW IVP PRN (21:53)
[2018-01-22] MEDS ORDERED: traMADol HCl 50 MG TAB PO PRN (21:53)
[2018-01-22] MEDS ORDERED: HYDROcodone/Acetaminophen 5/325 mg Tablet PO PRN (21:53)
[2018-01-22] MEDS ORDERED: Mag-Al 1200 mg/1200 mg/30 ML UDCUP PO PRN (21:53)
[2018-01-22] MEDS ORDERED: Ondansetron HCl/PF 4 MG/2 ML Vial IVP PRN (21:53)
[2018-01-22] MEDS ORDERED: Milk Of Magnesia 30 ML UDCUP PO PRN (21:53)
[2018-01-22] MEDS ORDERED: Potassium Chloride 20 MEQ TAB PO SCH (22:15)
[2018-01-22] MEDS ORDERED: VANCOMYCIN IVPB PRN (22:30)
[2018-01-22] MEDS: NS 0.9% w/ 40 MEQ KCL 1,000 ML IV SCH (22:45)
--- NOTE | 2018-01-23 00:36 | HP ---
DATE OF ADMISSION: 01/22/2018 PRIMARY CARE PHYSICIAN: Dr. Alberto Armando. REASON FOR ADMISSION: Recurrent fever and feeling weak. HISTORY OF PRESENT ILLNESS: Mr. Palomino is a very pleasant 72-year-old gentleman who actually just a dmitted about 2 weeks ago for very similar symptoms. He has a history of Crohn's disease as well as vitamin B12 deficiency and was recently discharged from the hospital for an admission for pneumonia w hich was community-acquired. He was released on 01/12/2018 and says that when he went home, he seeme d okay and in fact on Thursday, he started to feel so good that he wanted to go and run some errands. However, later on that evening, he did get a temperature of about 101. Then, on Thursday, he went and did some more shopping at a local [employer] and then on Thursday, he had gone to see Dr. Wang, hi s planning analyst in the office and he had noted that he was having some low-grade temperatures at [facility] t which they thought could be possibly due to Crohn's flareup. However, he continued to have low gra de temperature and then on the day of admission, he spiked a temperature up to 103. His called a neighbor who is also a hospice nurse. She checked his temperature and it was 102.7 and she listene d to his chest and noted some rattling in his chest and suggested that he come back to the hospital f or evaluation. It is also noted that he has had decreased appetite and generalized weakness, but he denies any cough or feeling congested. He denies any chest pain or shortness of breath, no nausea, n o vomiting, no diarrhea. He has no known history of TB exposure. He says that he has not been on an y type of biologic agent for his Crohn's disease and no sick contacts that he is aware of. He also s ays he stopped smoking the E-cigarettes after his last hospital admission. PAST MEDICAL HISTORY: Significant for Crohn's disease, vitamin B12 deficiency and pulmonary embolism , which was diagnosed in 2016. REVIEW OF SYSTEMS: Constitutional: He has had subjective and objective fever, no chills, no night s weats, but he has had poor appetite and some weight loss. HEENT: He denies any headaches, no dizzin ess, no visual changes, no sore throat, rhinorrhea, neck pain, no adenopathy. Pulmonary: As the his tory of present illness. He denies any hemoptysis and no cough. Cardiovascular: No chest pain, no shortness of breath, no PND, no orthopnea. No lower extremity edema, no PND. Gastrointestinal: He denies any abdominal pain, no nausea, no vomiting, no change in bowels. Genitourinary: No urinary f requency, hematuria, no hesitancy. Musculoskeletal: No muscle pains, weakness or joint pains. Neur ologic: No focal weakness, numbness, no seizures. Psychiatric: No symptoms of anxiety or depressio n. Skin and Integument: No skin changes. No rash. PAST SURGICAL HISTORY: He has had a colectomy. ALLERGIES: SULFA and OAK TREES. FAMILY HISTORY: Significant for lung cancer in his father and supranuclear palsy in his mother. SOCIAL HISTORY: He is a former smoker. He recently quit using e-cigarettes. No alcohol use. He is and his is the surrogate decision maker. He is a FULL CODE. CURRENT MEDICATIONS: Include multivitamin once a day, lactobacillus, Zyrtec, Caltrate 600 mg daily, balsalazide 3 capsules 3 times a day and aspirin 81 mg a day. PHYSICAL EXAMINATION: GENERAL: He is alert and oriented. He appears to be in no acute distress. VITAL SIGNS: Blood pressure was 95/54, heart rate 90, respiratory rate of 18, temperature is 99.3, O 2 sat is 92% on room air. HEENT: Pupils are equal, round, and reactive. Extraocular muscles are intact. His sclerae are anic teric. Throat, there is no erythema, no exudates. NECK: No adenopathy, no bruits. LUNGS: Clear to auscultation. He did have some faint crackles in the right base, but there was no w heezing, no rhonchi. CARDIOVASCULAR: He has a normal S1, S2. I did not appreciate an S3 or S4. No murmurs, clicks or ru bs. ABDOMEN: Soft, it is nontender, nondistended. Positive for bowel sounds. No rebound, no guarding. EXTREMITIES: There is no edema. NEUROLOGICALLY: Nonfocal. LABORATORY AND X-RAY FINDINGS: RESULTS: Sodium 138, potassium 2.5, chloride is 99, CO2 is 26, BUN o f 6, creatinine 0.81, glucose is 99, magnesium is 1.6. Lactic acid was 1.4. His white blood cell co unt 7.4, hemoglobin 12, hematocrit is 37.4, platelet count is 524. On his chest x-ray, his heart siz e is normal. He has bilateral upper lobe infiltrates in the right. It is around it like a mass, niall und it like infiltrate that is almost unchanged from previous admission. This is by my reading. ASSESSMENT AND PLAN: 1. This is a pleasant 72-year-old gentleman who presents to the emergency room with recurrent fever, generalized weakness and poor appetite. He also has a pneumonia which appears to have not resolved. He will be admitted once again to the hospital for recurrent pneumonia, again it is concerning the location and characteristics of the infiltrate on chest x-ray. We will therefore consult Pulmonary M edicine once again since he was recently hospitalized. We will change his antibiotics at this time t o ones that cover for a healthcare-associated pneumonia. We will also place him on a probiotic. 2. Hypokalemia. It is unclear why his potassium is low. In reviewing his records, he tends to run potassium on the lower side, it is possibly due to decreased oral intake and this will be replaced. 3. Crohn's disease. This appears to be quiescent and we can continue his usual medications for this and we will also be placing him on DVT prophylaxis given his prior history of deep venous thrombosis and pulmonary embolism.
[2018-01-23] MEDS: Piperacillin/Tazobactam 3.375 GM in Sodium Chloride 0.9% 100 ML IVPB SCH ×4 (01:04→20:05)
[2018-01-23 01:28] LABS: Troponin I 0.099 ng/mL (< 0.028)
[2018-01-23 04:20] LABS: #Eosinphils 0.2 thou/uL (0.0-0.7); #Monocytes 0.5 thou/uL (0.11-0.59); #Neutrophils 5.3 thou/uL (1.40-6.50); %Basophils 0.3 % (0.0-1.0); %Eosinophils 2.8 % (0.0-10.0); %Lymphocytes 14.3 % (21.0-51.0); %Monocytes 6.6 % (0.0-10.0); Hemoglobin 10.7 g/dL (14.0-18.0); Mean Corpuscular HGB CONC 32.7 g/dL (32.0-36.0); Mean Corpuscular Hemoglobin 30.5 pg (27.0-31.0); Mean Corpuscular Volume 93.3 fl (80.0-94.0); Mean Platelet Volume 6.3 fL (7.4-10.4); Platelet Count 437 thou/uL (130-400); RBC Distribution Width 14.4 % (11.5-14.5)
[2018-01-23 04:52] LABS: Anion Gap 9 mmol/L (10-20); BUN (Urea Nitrogen) 7 mg/dL (8.4-25.7); Calc. Creatinine Clearance 78 mL/min (70-130); Calcium 8.3 mg/dL (7.8-10.44); Carbon Dioxide 29 mmol/L (23-31); Chloride 104 mmol/L (98-107); Estimated GFR-MDRD Greater than 90; Glucose 90 mg/dL (83-110); Sodium 139 mmol/L (136-145)
[2018-01-23] MEDS: Calcium Carbonate 600 MG TAB PO SCH (08:59)
[2018-01-23] MEDS: Famotidine 20 MG TAB PO SCH ×2 (08:59→20:05)
[2018-01-23] MEDS: Loratadine 10 MG TAB PO SCH (08:59)
[2018-01-23] MEDS: Saccharomyces boulardii 250 MG CAP PO SCH (08:59)
[2018-01-23] MEDS: Enoxaparin Sodium 40 MG/0.4 ML SYRINGE SC SCH (08:59)
--- NOTE | 2018-01-23 10:41 | PDOC.PN ---
- Subjective Encounter Start Date: 01/23/18 Encounter Start Time: 09:45 Subjective: had temp of 100 this am, no chest pain or sob -: had his breakfast, no diarrhea now -: and daughter at bedside - Objective Resuscitation Status: Resuscitation Status FULL:Full Resuscitation MAR Reviewed: Yes Vital Signs & Weight: Vital Signs (12 hours) Temp Pulse Resp BP Pulse Ox 01/23/18 07:50 100.0 F H 92 20 101/57 L 93 L 01/23/18 03:07 99 F 83 20 106/56 L 94 L Weight Weight 133 lb 1.6 oz I&O: 01/22/18 01/23/18 01/24/18 06:59 06:59 06:59 Intake Total 825 Output Total 575 Balance 250 Result Diagrams: 01/23/18 03:49 01/23/18 03:49 Phys Exam - Physical Examination HEENT: PERRLA, moist MMs Neck: no JVD, supple Respiratory: no wheezing, no rales Cardiovascular: RRR, no significant murmur Gastrointestinal: soft, non-tender, positive bowel sounds Musculoskeletal: no edema, pulses present Neurological: non-focal, moves all 4 limbs Psychiatric: normal affect, A&O x 3 Dx/Plan (1) Community acquired bacterial pneumonia Code(s): J15.9 - UNSPECIFIED BACTERIAL PNEUMONIA Status: Acute (2) Sepsis Code(s): A41.9 - SEPSIS, UNSPECIFIED ORGANISM Status: Acute Qualifiers: Sepsis type: sepsis due to unspecified organism Qualified Code(s): A41.9 - Sepsis, unspecified organism (3) Demand ischemia of myocardium Code(s): I24.8 - OTHER FORMS OF ACUTE ISCHEMIC HEART DISEASE Status: Acute (4) Anemia, normocytic normochromic Code(s): D64.9 - ANEMIA, UNSPECIFIED Status: Chronic (5) Crohn's disease Code(s): K50.90 - CROHN'S DISEASE, UNSPECIFIED, WITHOUT COMPLICATIONS Status: Chronic Qualifiers: Digestive disease complication type: unspecified complication Comment: (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 per pulm advice * . Review of Systems - Medications/Allergies Allergies/Adverse Reactions: Allergies Allergy/AdvReac Type Severity Reaction Status Date / Time Sulfa (Sulfonamide Allergy Verified 01/22/18 21:19 Antibiotics) Medications: Current Medications Acetaminophen (Tylenol) 650 mg PO Q4H PRN PRN Reason: Headache/Fever or Pain Hydrocodone Bitart/Acetaminophen ([place] 5/325) 1 tab PO Q4H PRN PRN Reason: Moderate Pain (4-6) Al Hydroxide/Mg Hydroxide (Maalox) 30 ml PO Q6H PRN PRN Reason: Heartburn or Indigestion Aspirin (Aspirin Chewable) 81 mg PO DAILY [facility] Last Admin: 01/23/18 08:59 Dose: 81 mg Balsalazide (Colazal) 2,250 mg PO TID [facility] Last Admin: 01/23/18 09:01 Dose: 2,250 mg Calcium Carbonate (Caltrate) 600 mg PO DAILY [facility] Last Admin: 01/23/18 08:59 Dose: 600 mg Enoxaparin Sodium (Lovenox) 40 mg SC 0900 [facility] Last Admin: 01/23/18 08:59 Dose: 40 mg Famotidine (Pepcid) 20 mg PO BID [facility] Last Admin: 01/23/18 08:59 Dose: 20 mg Hydralazine HCl (Apresoline) 10 mg SLOW IVP Q4H PRN PRN Reason: Systolic BP > 180 Piperacillin Sod/Tazobactam (Sod 3.375 gm/ Sodium Chloride) 100 mls @ 200 mls/ hr IVPB 0200,0800,1400,2000 [facility] Last Admin: 01/23/18 08:59 Dose: 100 mls Vancomycin HCl 1 gm/ Device 200 mls @ 200 mls/hr IVPB 1100,2300 [facility] Potassium Chloride/Sodium Chloride (Ns 0.9% W/ 40 Meq Kcl) 1,000 mls @ 75 mls/ hr IV .[id number] [facility] Last Admin: 01/22/18 22:45 Dose: 1,000 mls Loratadine (Claritin) 10 mg PO DAILY [facility] Last Admin: 01/23/18 08:59 Dose: 10 mg Magnesium Hydroxide (Milk Of Magnesium) 30 ml PO DAILYPRN PRN PRN Reason: Constipation Miscellaneous Medication (Pharmacy To Dose) 1 each IVPB PRN PRN PRN Reason: PNEUMONIA Ondansetron HCl (Zofran Odt) 4 mg PO Q6H PRN PRN Reason: Nausea/Vomiting Ondansetron HCl (Zofran) 4 mg IVP Q6H PRN PRN Reason: Nausea/Vomiting Saccharomyces Boulardii (Florastor) 250 mg PO DAILY [facility] Last Admin: 01/23/18 08:59 Dose: 250 mg Tramadol HCl (Ultram) 50 mg PO Q4H PRN PRN Reason: Moderate Pain (4-6)
[2018-01-23] MEDS ORDERED: Vancomycin HCl 1 GM in Premix Bag 1 BAG IVPB SCH (11:00)
[2018-01-23 11:02] VITALS: BMI 18.6
[2018-01-23] MEDS: NS 0.9% w/ 40 MEQ KCL 1,000 ML IV SCH (11:16)
--- NOTE | 2018-01-23 17:28 | CON ---
DATE OF CONSULTATION: 01/23/2018 REASON FOR CONSULTATION: Abnormal EKG and positive troponins. HISTORY OF PRESENT ILLNESS: Mr. Palomino is a very pleasant 72-year-old white gentleman who comes to the hospital for fevers. He was in the hospital recently for this, was treated for pneumonia, was se nt home. This was just a few days ago, he came back because he noted that he continued to have fever s of 101 and felt really weak, so he was admitted and diagnosed with a recurrence of his pneumonia. He had an EKG that the computer called acute anterior ST elevation myocardial infarction; however, th is was not typical of ischemia, so this was not called and he was admitted for pneumonia. Troponins were drawn, they were slightly elevated, so Cardiology has been consulted for further evaluation and care. On my evaluation, Mr. Palomino denies any chest pain, tightness or pressure. He has only had fever an d weakness and some cough. PAST MEDICAL HISTORY: 1. Crohn's disease. 2. Vitamin B12 deficiency. 3. History of pulmonary embolism back in 2015. PAST SURGICAL HISTORY: Colectomy. OUTPATIENT MEDICATIONS: Include: 1. Multivitamin. 2. Lactobacillus. 3. Zyrtec. 4. Caltrate. 5. Balsalazide. 6. Aspirin 81 a day. ALLERGIES: SULFA DRUGS and OAK TREES. FAMILY HISTORY: Lung cancer in his father. SOCIAL HISTORY: Former smoker. No alcohol or drug use. REVIEW OF SYSTEMS: A 12-point review of systems was done and is all negative unless stated in the hi story of present illness. PHYSICAL EXAMINATION: VITAL SIGNS: Temperature 100.0 at home was up to 103, pulse 81, respiratory rate 16, sat 95% on room air, blood pressure 87/54, but it has been about 101/57. GENERAL: Awake, alert, oriented x3, in no distress. HEENT: Normocephalic, atraumatic. NECK: Supple. LUNGS: Have mild crackles at bilateral bases. CARDIOVASCULAR: S1, S2. No S3, S4. No murmurs, no rubs. ABDOMEN: Soft, positive bowel sounds. EXTREMITIES: No edema. SKIN: Warm and dry. LABORATORY DATA AND IMAGING: Laboratory work was reviewed. CBC was reviewed. Chemistries were revi ewed. Potassium was 2.5 at admission up to 3.0. Troponin has been 0.13, 0.09. BNP was 373. Chest x-ray was reviewed, bilateral upper lobe opacities, thought to be infiltrates. EKG was reviewed and shows ST elevations in V1 and V2. No reciprocal changes, elevations are actuall y more indicative of Brugada pattern. ASSESSMENT AND PLAN: 1. Uqf-UZ-kryucaf elevation myocardial infarction: Likely demand ischemia from his infectious proce ss. No indication for full anticoagulation at this time. 2. Abnormal EKG. This could be Brugada, however, at his age this may not be a big issue. We will c onsult Electrophysiology next week if he still here; however, this is not an acute issue at that time . 3. Pneumonia, recurrent per primary team. Thank you for letting us to participate in the care of your patient. We will follow.
--- NOTE | 2018-01-23 21:00 | CON ---
DATE OF CONSULTATION: 01/23/2018 HISTORY OF PRESENT ILLNESS: Mr. Palomino is a 72-year-old male. 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 He was recently hospitalized with a respiratory illness. He was discharged home after a few days with a diagnosis of pneumonia. He was seen in the office thi s last week and said he was feeling fine, although he had one temperature elevation to 102 prior to h is visit with me. His took his temperature on the day of admission and noticed it to be elevated, so she brought h im to the hospital. He denies cough, chest congestion or shortness of breath. He had a decreased appetite. His activity level has been down since his hospitalization in the last visit. I was encouraging him to be more active. His was very concerned that he is too active. He is otherwise unchanged. PAST MEDICAL HISTORY: 1. Remarkable for Crohn disease, with a recent flare based on lab work, but not based on bloody diar fiorella or abdominal cramping. 2. B12 deficiency. 3. History of pulmonary embolism after pneumonia in 2016. FAMILY HISTORY: Negative for lung disease in early age. SOCIAL HISTORY: Non-smoker, nondrinker. FAMILY HISTORY: Cancer. ALLERGIES: He reports an allergy to SULFA. SOCIAL HISTORY: He is a former smoker. He was using e-cigarettes recently. We discussed the possib ilities of pulmonary effects of e-cigarettes. He is in the office and then I asked him to just stay off of these to eliminate these as variable for contributing factors to his radiographic abnormalitie s. He has done so. REVIEW OF SYSTEMS: Ten-point review of systems otherwise negative. PHYSICAL EXAMINATION: GENERAL: He is very pleasant. He is absolutely in no distress. He did have shaking chills earlier. VITAL SIGNS: His temperature was not taken afterwards. His temperature maximum today is 100.0. He is afebrile now. Heart rate is 81, respiratory rate is 16, oximetry is 95% on room air and blood pre ssure 87/54. HEAD AND NECK: Unremarkable. LUNGS: Clear. HEART: Regular rhythm. S1 and S2 are normal. ABDOMEN: Soft and nontender. EXTREMITIES: Without clubbing, cyanosis or edema. NEUROLOGIC: Nonfocal. LABORATORY DATA: White count 7, hemoglobin 10.7 and platelets 437. Sodium 139, potassium 3, chlorid e 104, bicarbonate 29, BUN 7 and creatinine 0.7. IMPRESSION AND PLAN: Intermittent persistent fever, unclear etiology. His radiograph in my opinion has changed very little since his last radiograph. I would not expect a dramatic improvement if he h ad a pneumonia. Bronchiolitis obliterans is in the differential. I doubt he has an immunocompromise d host type infection or a fungal pneumonia. I do not feel he needs bronchoscopy or biopsies at this time, although we will follow his radiographic abnormalities as an outpatient with a followup CT in 4-6 weeks. I would recommend adding steroids to his antimicrobial regimen. I do not think his shaking chills earlier today are related to the vancomycin infusion. His vancomyc in has been discontinued as I do not believe that this is a Staphylococcal infection. He actually lo oks well other than the fever and looks exactly like he looked in the office earlier in the week. I met with the family and answered all of their questions and any other questions regarding what to do with him once he got home and I have explained over and over again that I can answer those questions at this time. We did discuss also the pulmonary manifestations of Crohn disease. He has never had this in the past, so it would be unusual for all of a sudden for him to have this ma nifestation of Crohn disease, but not impossible. This is a 50-minute consult. Greater than 50% of the time was spent on the unit coordinating care.
[2018-01-24] MEDS: NS 0.9% w/ 40 MEQ KCL 1,000 ML IV SCH (01:10)
[2018-01-24] MEDS: Piperacillin/Tazobactam 3.375 GM in Sodium Chloride 0.9% 100 ML IVPB SCH ×4 (01:10→20:51)
[2018-01-24 08:22] LABS: Anion Gap 9 mmol/L (10-20); BUN (Urea Nitrogen) 5 mg/dL (8.4-25.7); Calc. Creatinine Clearance 79 mL/min (70-130); Calcium 8.1 mg/dL (7.8-10.44); Carbon Dioxide 27 mmol/L (23-31); Chloride 107 mmol/L (98-107); Estimated GFR-MDRD Greater than 90; Glucose 76 mg/dL (83-110); Sodium 140 mmol/L (136-145)
[2018-01-24] MEDS: predniSONE 20 MG TAB PO SCH (08:33)
[2018-01-24] MEDS: Calcium Carbonate 600 MG TAB PO SCH (08:34)
[2018-01-24] MEDS: Famotidine 20 MG TAB PO SCH ×2 (08:34→21:56)
[2018-01-24] MEDS: Enoxaparin Sodium 40 MG/0.4 ML SYRINGE SC SCH (08:34)
[2018-01-24] MEDS: Loratadine 10 MG TAB PO SCH (08:35)
[2018-01-24] MEDS: Saccharomyces boulardii 250 MG CAP PO SCH (08:35)
--- NOTE | 2018-01-24 11:11 | PDOC.PN ---
- Subjective Encounter Start Date: 01/24/18 Encounter Start Time: 08:50 Subjective: feels better, is eating better -: no cough or sob - Objective Resuscitation Status: Resuscitation Status FULL:Full Resuscitation MAR Reviewed: Yes Vital Signs & Weight: Vital Signs (12 hours) Temp Pulse Resp BP Pulse Ox 01/24/18 07:49 97.8 F 68 16 98/56 L 98 01/24/18 04:00 97.6 F 67 18 111/66 93 L 01/24/18 00:00 98.0 F 70 18 105/59 L 95 Weight Admit Weight 133 lb Weight 134 lb 14.4 oz I&O: 01/23/18 01/24/18 01/25/18 06:59 06:59 06:59 Intake Total 825 1400 Output Total 575 775 Balance 250 625 Result Diagrams: 01/23/18 03:49 01/24/18 07:52 Phys Exam - Physical Examination HEENT: PERRLA, moist MMs Neck: no JVD, supple Respiratory: no wheezing, no rales Cardiovascular: RRR, no significant murmur Gastrointestinal: soft, non-tender, positive bowel sounds Musculoskeletal: no edema, pulses present Neurological: non-focal, moves all 4 limbs Psychiatric: normal affect, A&O x 3 Dx/Plan (1) Community acquired bacterial pneumonia Code(s): J15.9 - UNSPECIFIED BACTERIAL PNEUMONIA Status: Acute (2) Sepsis Code(s): A41.9 - SEPSIS, UNSPECIFIED ORGANISM Status: Acute Qualifiers: Sepsis type: sepsis due to unspecified organism Qualified Code(s): A41.9 - Sepsis, unspecified organism (3) Demand ischemia of myocardium Code(s): I24.8 - OTHER FORMS OF ACUTE ISCHEMIC HEART DISEASE Status: Acute (4) Anemia, normocytic normochromic Code(s): D64.9 - ANEMIA, UNSPECIFIED Status: Chronic (5) Crohn's disease Code(s): K50.90 - CROHN'S DISEASE, UNSPECIFIED, WITHOUT COMPLICATIONS Status: Chronic Qualifiers: Digestive disease complication type: unspecified complication Comment: (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 Review of Systems - Medications/Allergies Allergies/Adverse Reactions: Allergies Allergy/AdvReac Type Severity Reaction Status Date / Time Sulfa (Sulfonamide Allergy Verified 01/22/18 21:19 Antibiotics) vancomycin Allergy Verified 01/23/18 17:38 Medications: Current Medications Acetaminophen (Tylenol) 650 mg PO Q4H PRN PRN Reason: Headache/Fever or Pain Last Admin: 01/23/18 19:15 Dose: 650 mg Hydrocodone Bitart/Acetaminophen ([place] 5/325) 1 tab PO Q4H PRN PRN Reason: Moderate Pain (4-6) Al Hydroxide/Mg Hydroxide (Maalox) 30 ml PO Q6H PRN PRN Reason: Heartburn or Indigestion Aspirin (Aspirin Chewable) 81 mg PO DAILY [facility] Last Admin: 01/24/18 08:34 Dose: 81 mg Balsalazide (Colazal) 2,250 mg PO TID [facility] Last Admin: 01/24/18 08:34 Dose: 2,250 mg Calcium Carbonate (Caltrate) 600 mg PO DAILY [facility] Last Admin: 01/24/18 08:34 Dose: 600 mg Enoxaparin Sodium (Lovenox) 40 mg SC 0900 [facility] Last Admin: 01/24/18 08:34 Dose: 40 mg Famotidine (Pepcid) 20 mg PO BID [facility] Last Admin: 01/24/18 08:34 Dose: 20 mg Hydralazine HCl (Apresoline) 10 mg SLOW IVP Q4H PRN PRN Reason: Systolic BP > 180 Piperacillin Sod/Tazobactam (Sod 3.375 gm/ Sodium Chloride) 100 mls @ 200 mls/ hr IVPB 0200,0800,1400,2000 [facility] Last Admin: 01/24/18 08:33 Dose: 100 mls Loratadine (Claritin) 10 mg PO DAILY [facility] Last Admin: 01/24/18 08:35 Dose: 10 mg Magnesium Hydroxide (Milk Of Magnesium) 30 ml PO DAILYPRN PRN PRN Reason: Constipation Ondansetron HCl (Zofran Odt) 4 mg PO Q6H PRN PRN Reason: Nausea/Vomiting Ondansetron HCl (Zofran) 4 mg IVP Q6H PRN PRN Reason: Nausea/Vomiting Potassium Chloride (K-Dur) 40 meq PO BID-[facility] Prednisone (Prednisone) 40 mg PO QAM-[facility] Last Admin: 01/24/18 08:33 Dose: 40 mg Saccharomyces Boulardii (Florastor) 250 mg PO DAILY [facility] Last Admin: 01/24/18 08:35 Dose: 250 mg Tramadol HCl (Ultram) 50 mg PO Q4H PRN PRN Reason: Moderate Pain (4-6)
--- NOTE | 2018-01-24 13:32 | PRG ---
DATE OF SERVICE: 01/24/2018 SUBJECTIVE: Mr. Palomino had a temperature to 102 yesterday. He has been afebrile since midnight. OBJECTIVE: VITAL SIGNS: Oximetry is improved from 93% to 97% on room air. Blood pressure 115/65 and respirator y rate is 16. LUNGS: Remarkable for fine crackles at his bases. HEART: Regular rhythm. ABDOMEN: Soft. LABORATORY AND IMAGING DATA: CT of his chest, abdomen and pelvis was ordered. I really do not find any exam findings that would lead me to think that there would be a benefit from CAT scanning his who le body, so I will put this on hold. We will continue the antimicrobial therapy for now. His electr olytes are unremarkable. His potassium is 3. His renal function is normal with a creatinine of 0.7. PLAN: I have planned to discuss his care with Dr. Johnson since he follows his Crohn disease.
--- NOTE | 2018-01-24 16:12 | PDOC.CTH ---
Cardiology Progress Note - Subjective He is doing much better since abx and no more fever. - Objective Vital Signs Temp Pulse Resp BP Pulse Ox 01/24/18 15:14 98.2 F 76 16 100/56 L 98 01/24/18 11:34 98 F 73 16 115/65 97 01/24/18 07:49 97.8 F 68 16 98/56 L 98 Admit Weight 133 lb Weight 134 lb 14.4 oz 01/23/18 01/24/18 01/25/18 06:59 06:59 06:59 Intake Total 825 1400 Output Total 575 775 Balance 250 625 - Physical Examination General/Neuro: alert & oriented x3, NAD Neck: no JVD present Lungs: unlabored respirations Heart: RRR Abdomen: NT/ND Extremities: other: (no edema.) - Telemetry Telemetry Rhythm: NSR - Labs Result Diagrams: 01/23/18 03:49 01/24/18 07:52 Troponin/CKMB CK-MB (CK-2) 0.4 ng/mL (0-6.6) 01/22/18 18:55 Troponin I 0.099 ng/mL (< 0.028) H 01/23/18 00:49 - Assessment/Plan 1. NSTEMI 2. Abnormal ECG 3. Recurrent pneumonia PLAN: - Demand ischemia - Will show ECG to EP to see if they think Brugada pattern is seen and see if there is anything to do. - Improved with IV abx.
[2018-01-24] MEDS ORDERED: Potassium Chloride 20 MEQ TAB PO SCH (17:00)
[2018-01-25] MEDS: Piperacillin/Tazobactam 3.375 GM in Sodium Chloride 0.9% 100 ML IVPB SCH ×2 (03:02→08:12)
[2018-01-25 05:47] LABS: Anion Gap 10 mmol/L (10-20); BUN (Urea Nitrogen) 4 mg/dL (8.4-25.7); Calc. Creatinine Clearance 84 mL/min (70-130); Calcium 7.9 mg/dL (7.8-10.44); Carbon Dioxide 25 mmol/L (23-31); Chloride 108 mmol/L (98-107); Estimated GFR-MDRD Greater than 90; Glucose 106 mg/dL (83-110); Sodium 140 mmol/L (136-145)
[2018-01-25 05:57] LABS: Critical Call Chemistry 2NO.AGE @556; Potassium 2.6 mmol/L (3.5-5.1)
[2018-01-25] MEDS: Potassium Chloride 20 MEQ TAB PO SCH ×2 (06:17→09:46)
[2018-01-25] MEDS ORDERED: Sodium Chloride 0.9% 10 ML ONE (07:11)
[2018-01-25] MEDS: predniSONE 20 MG TAB PO SCH (08:13)
[2018-01-25] MEDS: Enoxaparin Sodium 40 MG/0.4 ML SYRINGE SC SCH (08:14)
[2018-01-25] MEDS: Famotidine 20 MG TAB PO SCH (08:14)
[2018-01-25] MEDS: Calcium Carbonate 600 MG TAB PO SCH (08:14)
[2018-01-25] MEDS: Loratadine 10 MG TAB PO SCH (08:15)
[2018-01-25] MEDS: Saccharomyces boulardii 250 MG CAP PO SCH (08:15)
--- NOTE | 2018-01-25 08:25 | ADD-PRG ---
ADDENDUM I talked to Dr. Johnson. He has been contemplating placing him on Imuran for his inflammatory bowel dis ease. I doubt he has acute histoplasma, but we will send histoplasma urinary antigen and fungal anti body panel and QuantiFERON, anticipating he may require immunosuppressive therapy long-term in the fu ture.
--- NOTE | 2018-01-25 12:13 | PRG ---
DATE OF SERVICE: 01/25/2018 SUBJECTIVE: Mr. Palomino is doing well. He feels like he is ready to go home, was having some diarrh ea, but that is better. PHYSICAL EXAMINATION: VITAL SIGNS: Blood pressure 139/85, heart rate 90, respiratory rate 18. He is afebrile. LUNGS: Remarkable for crackles at his bases. CARDIOVASCULAR: Regular rhythm. S1 and S2 normal. ABDOMEN: Soft and nontender. IMPRESSION: 1.? pneumonia with febrile illness, but his radiograph had not changed much from his radiograph sever al weeks back. 2.? lung mass, will have a CAT scan in 4-5 weeks. 3. Crohn's disease 4. History of thromboembolic disease with negative workup for recurrence last admission. send him h ome on Augmentin for a week 875 twice a day as well as prednisone 40 mg a day for 5 days, then he heidi l go to 20 mg a day until he sees me in a week to 10 days, we encouraged his to call me if he vasquez s recurrent fever. Pending at the time discharge is a histoplasma urinary antigen and fungal antibody panel and a Quanti FERON all drawn in the event that he may need immunosuppressive therapy for his Crohn's disease in e future.
[2018-01-25 12:15] VITALS: BP 107/63; TEMP 98
--- NOTE | 2018-01-25 12:37 | PDOC.PN ---
- Subjective Encounter Start Date: 01/25/18 Encounter Start Time: 07:35 Subjective: feels good, no fever from last 24hrs -: no sob, is amb in room - Objective Resuscitation Status: Resuscitation Status FULL:Full Resuscitation MAR Reviewed: Yes Vital Signs & Weight: Vital Signs (12 hours) Temp Pulse Resp BP BP Pulse Ox 01/25/18 11:32 98.0 F 74 18 107/63 95 01/25/18 08:15 98.1 F 69 16 113/64 98 01/25/18 03:13 97.8 F 71 18 107/64 Weight Admit Weight 133 lb Weight 134 lb 14.4 oz I&O: 01/24/18 01/25/18 01/26/18 06:59 06:59 06:59 Intake Total 1400 2240 Output Total 775 453 Balance 625 1787 Result Diagrams: 01/23/18 03:49 01/25/18 04:01 Additional Labs: Accuchecks 01/25/18 06:15 POC Glucose 95 Phys Exam - Physical Examination HEENT: PERRLA, moist MMs Neck: no JVD, supple Respiratory: no wheezing, no rales Cardiovascular: RRR, no significant murmur Gastrointestinal: soft, non-tender, positive bowel sounds Musculoskeletal: no edema, pulses present Neurological: non-focal, moves all 4 limbs Psychiatric: normal affect, A&O x 3 Dx/Plan (1) Community acquired bacterial pneumonia Code(s): J15.9 - UNSPECIFIED BACTERIAL PNEUMONIA Status: Acute (2) Sepsis Code(s): A41.9 - SEPSIS, UNSPECIFIED ORGANISM Status: Resolved Qualifiers: Sepsis type: sepsis due to unspecified organism Qualified Code(s): A41.9 - Sepsis, unspecified organism (3) Demand ischemia of myocardium Code(s): I24.8 - OTHER FORMS OF ACUTE ISCHEMIC HEART DISEASE Status: Acute (4) Anemia, normocytic normochromic Code(s): D64.9 - ANEMIA, UNSPECIFIED Status: Chronic (5) Crohn's disease Code(s): K50.90 - CROHN'S DISEASE, UNSPECIFIED, WITHOUT COMPLICATIONS Status: Chronic Qualifiers: Digestive disease complication type: unspecified complication Comment: (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
--- NOTE | 2018-01-25 14:57 | DIS ---
DATE OF ADMISSION: 01/22/2018 DATE OF DISCHARGE: 01/25/2018 DISCHARGE DISPOSITION: To home. PRIMARY DISCHARGE DIAGNOSES: Sepsis, pneumonia, demand ischemia. SECONDARY DISCHARGE DIAGNOSES: History of Crohn's disease, chronic anemia, short bowel syndrome, vit burden B12 deficiency. PROCEDURES DONE DURING HOSPITALIZATION: Echo with 2D Doppler done showed an EF of 55%-60%, grade I/I II diastolic dysfunction. Chest x-ray done showed bilateral upper lobe opacities which may represent infiltrates. Blood cultures x2 no growth. Influenza A and B antigens were negative. Respiratory v irus panel was negative. White count of 7, H&H 10 and 32, platelet count 437 with 76% neutrophils. Discharge potassium is 2.6 for replacement. Troponin I was indeterminate peaking up to 0.09. BNP 37 3. DISCHARGE MEDICATIONS: Augmentin 875 mg p.o. twice daily for 1 week, aspirin 81 mg p.o. daily, balsa lazide 750 mg 3 capsules 3 times daily, calcium carbonate 600 mg p.o. daily, cetirizine 10 mg daily., Pepcid 20 mg twice daily, Probiotic 1 capsule daily, Centrum Silver 1 tab daily, K-Dur 40 mEq p.o. t wice daily for 5 days, prednisone tapering dose as prescribed by Dr. Wang. ALLERGIES: SULFA and VANCOMYCIN. DISCHARGE PLAN: The patient to follow up with Dr. Wang in 1 week and primary care physician in 1 we ek. BRIEF COURSE DURING HOSPITALIZATION: The patient initially came to ER with complaints of fever runni ng up to 101. He was recently discharged with pneumonia and had completed a full course of antibioti cs. His repeat x-ray showed finding suggestive of possible persistent infiltrates. He was placed on Zosyn and has had follow ups with Dr. Wang and Dr. Doshi for Cardiology. The patient had indeterm inate troponin, but never had any complaints of chest pain or palpitation. He has been afebrile for the last 36 hours now. The patient has been switched over to Augmentin and needs to continue that fo r a week. He was also placed on prednisone and will likely follow up with Dr. Wang in 1 week. His Crohn's disease is stable with no flare up including worsening diarrhea or blood in the mucus and sto ol. No abdominal pain as such now. He is eating well and ambulating well prior to discharge. He vasquez s been cleared for discharge by specialists. Please see a face to face documentation on [facility] for the day of discharge.
[2018-01-28 19:13] LABS: A. flavus Negative (Neg:<1:1); A. fumigatus Negative (Neg:<1:1); A. niger Negative (Neg:<1:1); Blastomyces AB Negative (Neg:<1:1)
== END 2018-01-25 13:55 | disposition home or self-care (01) | DRG 871 ==
LOC: ERS 18:36 → 2NO 20:12
PROVIDERS: ADMIT Internal Medicine Infectious Disease; ATTEND Internal Medicine Infectious Disease
DX: A41.9 Sepsis, unspecified organism (principal); J18.9 Pneumonia, unspecified organism; K50.90 Crohn's disease, unspecified, without complications; I24.8 Other forms of acute ischemic heart disease; E87.6 Hypokalemia; E53.8 Deficiency of other specified B group vitamins; D64.9 Anemia, unspecified; Z88.2 Allergy status to sulfonamides; Z90.49 Acquired absence of other specified parts of digestive tract; Z86.711 Personal history of pulmonary embolism
CPT/HCPCS: 36415; 36416; 71045; 71046; 80048; 80053; 82553; 83605; 83735; 83880; 84484; 85025; 86480; 86612; 86635; 86698; 87040; 87633; 87804; 93005; 93306; 96365; 96375; A4216; J1650; J1956; J2543; J3370; J7050; J7506; J8499

== ENCOUNTER 2018-03-01 13:04 | Inpatient (IN) | payer MEDICARE, OTHER ==
[2018-03-01] MEDS ORDERED: Diltiazem 125 MG/25 ML ONE (13:26)
[2018-03-01] MEDS ORDERED: Diltiazem 125 MG in Sodium Chloride 0.9% 100 ML IVPB SCH (13:45)
[2018-03-01 13:46] LABS: #Eosinphils 0.1 thou/uL (0.0-0.7); #Lymphocytes 1.8 thou/uL (1.20-3.40); #Monocytes 0.8 thou/uL (0.11-0.59); #Neutrophils 6.1 thou/uL (1.40-6.50); %Basophils 0.3 % (0.0-1.0); %Eosinophils 0.7 % (0.0-10.0); %Lymphocytes 20.7 % (21.0-51.0); %Monocytes 9.4 % (0.0-10.0); %Neutrophils 68.9 % (42.0-75.0); Mean Corpuscular HGB CONC 31.6 g/dL (32.0-36.0); Mean Corpuscular Hemoglobin 30.7 pg (27.0-31.0); Mean Corpuscular Volume 97.2 fl (80.0-94.0); Mean Platelet Volume 6.7 fL (7.4-10.4); Platelet Count 457 thou/uL (130-400); RBC Distribution Width 16.1 % (11.5-14.5); Red Blood Cell (RBC) Count 4.55 mill/uL (4.70-6.10); White Blood Cell (WBC) Count 8.8 thou/uL (4.8-10.8)
[2018-03-01 14:06] LABS: ALT (SGPT) 16 U/L (8-55); AST (SGOT) 24 U/L (5-34); Albumin 3.7 g/dL (3.4-4.8); Alkaline Phosphatase 91 U/L (40-150); Anion Gap 12 mmol/L (10-20); BUN (Urea Nitrogen) 13 mg/dL (8.4-25.7); Bilirubin, Total 0.5 mg/dL (0.2-1.2); CK (CPK) 89 U/L (30-200); Calc. Creatinine Clearance 0 mL/min (70-130); Calcium 9.4 mg/dL (7.8-10.44); Carbon Dioxide 29 mmol/L (23-31); Chloride 101 mmol/L (98-107); Estimated GFR-MDRD 75; Globulin 3.7 g/dL (2.4-3.5); Glucose 94 mg/dL (83-110); Potassium 3.9 mmol/L (3.5-5.1); Protein, Total 7.4 g/dL (5.8-8.1); Sodium 138 mmol/L (136-145)
[2018-03-01 14:12] LABS: CKMB 2.3 ng/mL (0-6.6); Troponin I 0.071 ng/mL (< 0.028)
--- NOTE | 2018-03-01 14:50 | RAD ---
CHEST 1 VIEW: COMPARISON: 01/22/18. HISTORY: Chest pain. FINDINGS: Normal cardiac silhouette. Pulmonary vessels and hilum are normal. Costophrenic angles are clear. Chronic changes of the lung parenchyma. The previously noted mass-like opacities are difficult to ap preciate on the current exam. Small residual opacities do remain. Continued interrogation with ches t CT is recommended. No pneumothorax or osseous abnormalities. IMPRESSION: Limited evaluation of the previously identified lung parenchymal opacities. Better interrogation wit h chest CT is recommended. POS: [facility]
[2018-03-01] MEDS ORDERED: Acetaminophen 325 MG TAB PO PRN (15:26)
--- NOTE | 2018-03-01 17:14 | HP ---
CHIEF COMPLAINT: Weakness. HISTORY OF PRESENT ILLNESS: This is a 72-year-old male with a past medical history of chronic coliti s and hypertension, who otherwise presents with a chief complaint of weakness. More specifically, he has been feeling easily fatigued over the last month or so and had gone initially to his primary car e's office for a routine 6-month well visit. While in the primary care's office, he was found to be initially hypotensive with systolic blood pressure of 78 and subsequently had an EKG done on an outpa tient basis, which demonstrated atrial fibrillation with a heart rate in the 150s. He was subsequent ly instructed to present to our Emergency Department and that is why he is here with us today. The patient denies any other prior similar episodes and denies any prior known history of cardiovascu lar disease. The patient states that he has been feeling generally fatigued over the last month, lin r since he was discharged from this hospital for pneumonia, but he had personally chalked it up to a component of deconditioning and also new onset of stress given that he is caring for his , who is currently status post back surgery. REVIEW OF SYSTEMS: As per HPI. Constitutional: No significant weight loss or gain. Denies any fev ers or chills. HEENT: No new lightheadedness, dizziness, or vision changes. Cardiovascular: No ch est pressure, no chest pain, no left-sided arm numbness or tingling. No episodes of diaphoresis. Th e patient is unable to feel any palpitations even when his heart rate is elevated. Respiratory: No shortness of breath, generalized fatigue without dyspnea with exertion. No new cough. No new recent congestion or upper respiratory infection type symptoms. The patient states that he does have seaso nal allergies, which are typical for him and he has been taking [id number] Taylor. Gastrointe stinal: Denies any nausea, vomiting or abdominal pain. He states that he has intermittent diarrhea with his mesalamine, it is a new medication over the last 2 months. The patient denies any changes i n his diarrhea over the last few weeks to a month compared to when he first initiated that medication . Musculoskeletal: Denies any new myalgias or arthralgias, simply generalized fatigue as described above. Remainder of the review of systems otherwise is negative. PAST MEDICAL HISTORY: As per above: 1. Crohn's disease. 2. Vitamin B12 deficiency. 3. Prior history of PE from 2017. 4. History of tobacco use and vaping use. HOME MEDICATIONS: The patient's current EMR list includes the followin. Prednisone, which the patient states that he has been tapered down to 10 mg p.o. daily. 2. Multivitamin. 3. Probiotic. 4. Taylor. 5. Calcium carbonate 600 mg p.o. daily. 6. Aspirin 81 mg p.o. daily. 7. Mesalamine 3 times a day, 3 pills each time. The patient is unclear of strength. is going to be bringing in his medication list. ALLERGIES: Include SULFA and VANCOMYCIN. FAMILY HISTORY: The patient denies any known family history of cardiac arrhythmias. SOCIAL HISTORY: The patient quit tobacco use and then transitioned over to E-cigarettes, which he qu it approximately 4 months ago gradually, occasional alcohol use, no illicit drug use. The patient is . His is with him at bedside. His daughter is with him at bedside as well. The patien t indicates his would be his medical decision maker if he is unable to make his own medical deci shea. He wishes to be FULL CODE. PHYSICAL EXAMINATION: GENERAL: The patient is awake, alert, appropriate, lying in the hospital bed, in no acute distress, reasonable historian. HEENT: Normocephalic, atraumatic. Moist mucous membranes. Extraocular motions are intact. No post erior oropharyngeal erythema or exudate. CARDIOVASCULAR: S1, S2. No murmurs, rubs or gallops. Pulses 2+ bilateral upper extremity and bilat eral lower extremities. No pitting pedal edema. RESPIRATORY: Reasonable air movement. No conversational dyspnea. No wheezes, rales or rhonchi. Cl ear to auscultation bilaterally. ABDOMEN: Positive bowel sounds, soft, nontender to palpation. MUSCULOSKELETAL: Moving all 4 extremities equally. Able to sit up in the bed without difficulty or assistance. IMAGING: On 03/01/2018, chest x-ray impression "limited evaluation of the previously identified lung parenchymal opacities. Better interrogation with chest CT is recommended." LABORATORY DATA: WBC 8.8, hemoglobin 14.0, hematocrit 44.2, platelets 457. Sodium 138, potassium 3. 9, chloride 101, bicarb 29, BUN 13, creatinine 0.99, glucose 94, calcium 9.4, total bilirubin 0.5, T 24, ALT 16, alkaline phosphatase 91. Creatinine kinase 89, CK-MB 2.3, troponin 0.071. Total prote in 7.4, albumin 3.7. ASSESSMENT AND PLAN: This is a 72-year-old male, who presents with a chief complaint of fatigue. 1. Fatigue, likely related to his atrial fibrillation with rapid ventricular response. The patient has already been initiated on diltiazem drip, which he will continue with titration as needed. Check a TSH for the patient, echocardiogram as the last known echocardiogram we have in our system is from 2016. Consultation placed for Cardiology. I discussed the overall plan with the patient and his fa kirsten at bedside and they are in agreement. Maintain on telemetry. 2. Elevated troponin, indeterminate. Likely secondary to atrial fibrillation with rapid ventricular response as noted above. Continue to trend and closely monitor. The patient will be maintained on telemetry as described above. 3. History of Crohn's disease and colitis, appears to be grossly stable. Continue the patient on hi s home regimen. 4. Allergies. We will continue to closely monitor. The patient asks if his [id number] medica tions could have been the precipitant of his symptoms and that is currently unclear. 5. History of respiratory disease and tobacco use, chronic obstructive pulmonary disease appears to be currently stable without active involvement. 6. Diet: Cardiac. 7. Activity: As tolerated. 8. DVT prophylaxis with enoxaparin. Thank you for asking me to care for the patient. Questions or concerns, please contact me at [facility].
[2018-03-02 03:55] LABS: #Eosinphils 0.1 thou/uL (0.0-0.7); #Lymphocytes 1.9 thou/uL (1.20-3.40); #Monocytes 0.6 thou/uL (0.11-0.59); #Neutrophils 4.7 thou/uL (1.40-6.50); %Basophils 0.6 % (0.0-1.0); %Eosinophils 1.3 % (0.0-10.0); %Lymphocytes 25.6 % (21.0-51.0); %Monocytes 8.5 % (0.0-10.0); %Neutrophils 64.1 % (42.0-75.0); Hemoglobin 11.5 g/dL (14.0-18.0); Mean Corpuscular HGB CONC 32.5 g/dL (32.0-36.0); Mean Corpuscular Hemoglobin 31.3 pg (27.0-31.0); Mean Corpuscular Volume 96.3 fl (80.0-94.0); Mean Platelet Volume 6.3 fL (7.4-10.4); Platelet Count 378 thou/uL (130-400); RBC Distribution Width 15.9 % (11.5-14.5); Red Blood Cell (RBC) Count 3.66 mill/uL (4.70-6.10); White Blood Cell (WBC) Count 7.4 thou/uL (4.8-10.8)
[2018-03-02 04:17] LABS: ALT (SGPT) 11 U/L (8-55); AST (SGOT) 16 U/L (5-34); Albumin 2.8 g/dL (3.4-4.8); Alkaline Phosphatase 69 U/L (40-150); Anion Gap 7 mmol/L (10-20); BUN (Urea Nitrogen) 10 mg/dL (8.4-25.7); Bilirubin, Total 0.4 mg/dL (0.2-1.2); Calc. Creatinine Clearance 0 mL/min (70-130); Calcium 8.2 mg/dL (7.8-10.44); Carbon Dioxide 28 mmol/L (23-31); Chloride 109 mmol/L (98-107); Estimated GFR-MDRD Greater than 90; Globulin 2.8 g/dL (2.4-3.5); Glucose 95 mg/dL (83-110); Potassium 4.1 mmol/L (3.5-5.1); Protein, Total 5.6 g/dL (5.8-8.1); Sodium 140 mmol/L (136-145)
[2018-03-02] MEDS ORDERED: predniSONE 20 MG TAB PO SCH ×3 (08:00→13:30)
[2018-03-02] MEDS ORDERED: Enoxaparin Sodium 40 MG/0.4 ML SYRINGE SC SCH (09:00)
[2018-03-02] MEDS ORDERED: Famotidine 20 MG TAB ONE (10:33)
[2018-03-02] MEDS ORDERED: Enoxaparin Sodium 40 MG/0.4 ML SYRINGE ONE (10:33)
[2018-03-02] MEDS ORDERED: predniSONE 20 MG TAB ONE (10:33)
[2018-03-02] MEDS ORDERED: Multivitamin W/ Minerals 1 TAB ONE (10:57)
[2018-03-02] MEDS: Lactinex Tablet PO SCH (11:01)
[2018-03-02] MEDS: Calcium Carbonate 600 MG TAB PO SCH (11:02)
[2018-03-02] MEDS: Multivitamin W/ Minerals 1 TAB PO SCH (11:02)
[2018-03-02] MEDS: Famotidine 20 MG TAB PO SCH ×3 (11:03→21:57)
[2018-03-02] MEDS: Potassium Chloride 20 MEQ TAB PO SCH ×3 (11:05→21:57)
[2018-03-02] MEDS ORDERED: Digoxin 0.5 MG/2 ML AMP SLOW IVP SCH (16:30)
[2018-03-02 18:59] LABS: Hemoglobin 13.5 g/dL (14.0-18.0); Platelet Count 433 thou/uL (130-400)
[2018-03-02] MEDS ORDERED: Sodium Chloride 0.9% 500 ML IVPB SCH (19:00)
[2018-03-02] MEDS: Diltiazem 125 MG in Sodium Chloride 0.9% 100 ML IVPB SCH (19:52)
[2018-03-02] MEDS: Enoxaparin Sodium 60 MG/0.6 ML SYRINGE SC SCH (21:58)
--- NOTE | 2018-03-03 08:07 | CON-2 ---
Cardiology Consultation Resident Physician: Beryl Pathak MD, PGY-2 Attending Unit Control Worker: Ez De La Rosa MD DATE OF CONSULTATION: 03/02/2018 CHIEF COMPLAINT: Weakness and fatigue. HISTORY OF PRESENT ILLNESS: Mr. Palomino is a very pleasant 72-year-old gentleman who is a patient of Dr. Armando and Dr. Gupta, who presented to his primary care physician's office yesterday morning with complaint of generalized weakness and fatigue. He reported that his blood pressure was very low and therefore Dr. Armando performed an EKG. At that time, he was found to be and what appeared to be atrial fibrillation versus atrial flutter, and was sent to the ER for further evaluation. On evaluation in the ER, he was noted to be in an irregular rhythm which initially looked like atrial flutter, but also has some atrial fibrillation characteristics and started on a diltiazem drip. He has had an ongoing labile blood pressures overnight and therefore the diltiazem drip was stopped early this morning. At this time, he is asymptomatic and denies any chest pain or fluttering, but rhythm remains irregular. ROS: GEN: Denies fever, chills HEAD: Denies headache, trauma EYES: Denies vision changes, eye pain ENT: Denies hearing loss, sore throat, rhinorrhea CV: Denies chest pain, palpitations, PND, orthopnea or peripheral edema RESP: Denies cough, wheezing GI: Denies n/v/diarrhea, blood in stool : Denies dysuria, hematuria SKIN: Denies rashes, lesions ENDO: Denies heat/cold intolerance, skin changes PAST MEDICAL HISTORY: 1. Crohn's disease. 2. Pneumonia, most recently in 01/2018. 3. Multiple pulmonary arterial blood clots in 06/2016. 4. History of tobacco abuse PAST SURGICAL HISTORY: Ileum resection x3. 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 VANCOMYCIN: The patient believes tremors were related to this medicine however Dr. Wang's note from prior hospitilization does not believe this to be related MEDICATIONS: 1. Aspirin 81 mg p.o. daily. 2. Balsalazide 2250 mg p.o. t.i.d. 3. Prednisolone 10 mg every other day at this time, which is being tapered by Dr. Wang. 4. Cetirizine PRN 5. Vitamin B12 injections. 6. Vitamin D3. 7. Centrum multivitamin. SOCIAL HISTORY: The patient has 30-40 pack year smoking history and quit 4 years ago. Since that time he smoked E-cigarettes, but states that he stopped yesterday. Denies any alcohol or drug use. PHYSICAL EXAMINATION: VITAL SIGNS: Temperature 98.0, pulse 81, respirations 18, O2 saturation 98% on room air, and blood pressure 96/55. GENERAL: Alert and oriented. HEENT: Extraocular movements intact, no conjunctival injection. Moist mucous membranes. NECK: No JVD noted, no carotid bruits to auscultation. CARDIOVASCULAR: Irregularly irregular rhythm, no murmurs noted. Pulses 2+ in all 4 extremities. RESPIRATORY: Clear to auscultation bilaterally. ABDOMEN: Soft, nontender, nondistended, bowel sounds present. EXTREMITIES: No peripheral edema or cyanosis. LABORATORY DATA: WBC 7.4, hemoglobin 11.5, hematocrit 35.2, platelets 378. Sodium 140, potassium 4.1, chloride 109, CO2 28, BUN 10, creatinine 0.75, GFR greater than 90, glucose 95, calcium 8.2, total bilirubin 0.4, AST 16, ALT 11, alkaline phosphatase 69. Troponin 0.071, 0.070, 0.060. CK-MB 2.3. TSH 1.95. IMAGING: Chest x-ray on 03/01/2018: Pulmonary evaluation of the previously identified parenchymal opacity to see a better interrogation per CT chest recommended on formal read. Initial EKG showed rhythm similar to atrial flutter, repeat EKG showed atrial fibrillation Most recent echocardiogram in 06/2016 showed an ejection fraction of 55%-60% with mild mitral regurgitation and mild tricuspid regurgitation. ASSESSMENT AND PLAN: A 72-year-old gentleman with past medical history of Crohn 's disease and recent pneumonia, who presents with new onset atrial fibrillation versus atrial flutter. 1. Arrhythmia: Initial EKG looked like atrial flutter, but at this time rhythm appears to be atrial fibrillation. We will give 0.25 mg IV of digoxin and restart Cardizem drip at 5 mg per hour in addition to fluids overnight We will consult Dr. Morrell with Electrophysiology in the morning for possible ablation. We will also start therapeutic Lovenox at 60 mg b.i.d. and continue IV fluids overnight. Thank you very much for this consultation. Please see Dr. De La Rosa's addendum for any further recommendations. MTDD
[2018-03-03] MEDS: Potassium Chloride 20 MEQ TAB PO SCH ×2 (09:25→22:29)
[2018-03-03] MEDS: Lactinex Tablet PO SCH (09:25)
[2018-03-03] MEDS: Famotidine 20 MG TAB PO SCH ×2 (09:26→22:29)
[2018-03-03] MEDS: predniSONE 20 MG TAB PO SCH (09:26)
[2018-03-03] MEDS: Enoxaparin Sodium 60 MG/0.6 ML SYRINGE SC SCH ×2 (09:26→22:30)
[2018-03-03] MEDS: Calcium Carbonate 600 MG TAB PO SCH (09:26)
[2018-03-03] MEDS: Multivitamin W/ Minerals 1 TAB PO SCH (09:27)
[2018-03-03] MEDS ORDERED: ISOVUE-370 76%-LOCM 1 ML ONE (10:44)
--- NOTE | 2018-03-03 11:55 | CT ---
CT ARTERIOGRAM CHEST WITH IV CONTRAST AND 3D MIP IMAGING: HISTORY: Chest pain. Atrial flutter. Evaluate for clot. COMPARISON: 01/09/18. FINDINGS: There is no evidence for clot in the left atrial appendage. Muscular contraction is slightly differe nt than on the exam from 01/09/18. A very subtle, small linear filling defect is present within the arteries to the right lower lobe. Lungs are hyperinflated with scattered areas of interstitial thickening and parenchymal scarring. Th e spiculated mass in the right upper lobe has enlarged to 3.3 cm greatest oblique diameter where it w as previously 3.0 cm. An enlarged right hilar lymph node now measures 1.8 cm greatest oblique diamet er. Inferiormost images show hyperdense stone in the dependent portion of the gallbladder lumen. IMPRESSION: 1. No CT evidence of left atrial appendage thrombus. 2. Small right lower lobe pulmonary emboli, nonocclusive. 3. Interval enlargement right upper lobe lung mass with developing right hilar adenopathy. 4. Atherosclerosis. Findings were called to Dr. Morrell at 1054 hours. CODE CR POS: IW[place]
--- NOTE | 2018-03-03 14:18 | CON ---
DATE OF CONSULTATION: 03/03/2018 HISTORY OF PRESENT ILLNESS: Mr. Palomino is a pleasant gentleman I have followed since he had pneumon ia and a pulmonary embolism. He was treated with full dose anticoagulation and prophylactic dose ant icoagulation and is now off anticoagulants. He went for his wellness check, but said he had actually been feeling poorly. His recently had back surgery and was requiring more assistance from him. He says he did not think he was eating and drinking enough leading up to this. He was found to be in atrial flutter in Dr. Armando's office and subsequently has been admitted. He had been seen in [facility] in December with an infiltrate. It actually has some air bronchograms in it, but also s ome characteristics suggestive of a mass lesion. This was back at the end of December. I scheduled him for a [address] which was to be done yesterday, but he was admitted to the hospital and this was can celed. PAST MEDICAL HISTORY: 1. Remarkable for Crohn's disease. He was recently treated for a Crohn's flare. 2. History of a febrile illness that was felt to be possibly pneumonia versus maybe an atypical pres entation for Crohn's flare. He was treated with antibiotics and steroids and had resolution of his f ever that was in middle January. 3. History of B12 deficiency. FAMILY HISTORY: Negative for lung disease at an early age. SOCIAL HISTORY: He is nonsmoker, nondrinker. He is a former smoker. He has been using E-cigarettes recently. ALLERGIES: Reports intolerance to SULFA. REVIEW OF SYSTEMS: Otherwise negative. He actually says he feels fine now. PHYSICAL EXAMINATION: VITAL SIGNS: Afebrile, heart rate 79, respiratory rate 16, oximetry is 96 on room air. Blood pressu re 100/58. HEENT: Pupils are equal. Sclerae is anicteric. Extraocular movements full. NECK: Supple, no lymphadenopathy. LUNGS: Clear. HEART: Regular rhythm. S1 and S2 are normal. ABDOMEN: Soft and nontender. EXTREMITIES: No clubbing, cyanosis, or edema. Chest CT reviewed by me, persistence of an abnormality in his upper lobe appears to abut the fissure. IMPRESSION: Persistent abnormality in his right upper lobe. He will need PET imaging as an outpatie nt. In my opinion this should not delay treatment of his atrial flutter ? atrial fibrillation. We will s et up PET imaging once he is discharged from the hospital. He appears to be medically stable at this point in time.
[2018-03-03 14:58] VITALS: BMI 17.8
[2018-03-03] MEDS: Diltiazem 125 MG in Sodium Chloride 0.9% 100 ML IVPB SCH (19:12)
--- NOTE | 2018-03-03 23:21 | PDOC.PN ---
- Subjective Encounter Start Date: 03/03/18 Encounter Start Time: 16:00 Subjective: f/u afib with RVR, nsg notes rev, phil ovn, no new c/o, no CP, no palpitatin -: no SOB, dizziness, or fatigue - Objective Resuscitation Status: Resuscitation Status FULL:Full Resuscitation Vital Signs & Weight: Vital Signs (12 hours) Temp Pulse Resp BP Pulse Ox 03/03/18 16:00 97.6 F 65 17 122/66 96 03/03/18 11:38 97.6 F 110 H 16 125/98 H 97 Weight Admit Weight 134 lb 6.4 oz Weight 127 lb 14.4 oz I&O: 03/02/18 03/03/18 03/04/18 06:59 06:59 06:59 Intake Total 1205 1020 Output Total 1470 Balance 1205 -450 Result Diagrams: 03/02/18 18:52 03/02/18 18:52 Phys Exam - Physical Examination Constitutional: NAD HEENT: moist MMs, sclera anicteric Respiratory: no wheezing, no rales, no rhonchi, clear to auscultation bilateral Cardiovascular: no significant murmur, no rub Gastrointestinal: soft, non-tender, no distention, positive bowel sounds Musculoskeletal: no edema, pulses present Neurological: moves all 4 limbs Psychiatric: normal affect, A&O x 3 Dx/Plan - Plan * afib with RVR * appreciate card c/s * appreciate EP c/s * plan for ablation in AM * A/C afterwards hx recent pna * appreciate pulm c/s * continue with close monitoring, hemodynamically stable diet: as franco activity: as franco Review of Systems - Medications/Allergies Allergies/Adverse Reactions: Allergies Allergy/AdvReac Type Severity Reaction Status Date / Time Sulfa (Sulfonamide Allergy Verified 01/22/18 21:19 Antibiotics) vancomycin Allergy Verified 01/23/18 17:38 Medications: Current Medications Acetaminophen (Tylenol) 650 mg PO Q4H PRN PRN Reason: Headache/Fever or Pain Acidophilus (Floranex) 1 tab PO DAILY [facility] Last Admin: 03/03/18 09:25 Dose: 1 tab Aspirin (Aspirin Chewable) 81 mg PO DAILY [facility] Last Admin: 03/03/18 09:26 Dose: 81 mg Balsalazide (Colazal) 2,250 mg PO TID [facility] Last Admin: 03/03/18 22:29 Dose: 2,250 mg Calcium Carbonate (Caltrate) 600 mg PO DAILY [facility] Last Admin: 03/03/18 09:26 Dose: 600 mg Enoxaparin Sodium (Lovenox) 60 mg SC 0900,2100 [facility] Last Admin: 03/03/18 22:30 Dose: 60 mg Famotidine (Pepcid) 20 mg PO BID [facility] Last Admin: 03/03/18 22:29 Dose: 20 mg Diltiazem HCl 125 mg/ Sodium (Chloride) 125 mls @ 5 mls/hr IVPB INF [facility] PRN Reason: 5 MG/HR Last Admin: 03/03/18 19:12 Dose: 125 mls Iron/Minerals/Multivitamins (Theragran M) 1 tab PO DAILY [facility] Last Admin: 03/03/18 09:27 Dose: 1 tab Potassium Chloride (K-Dur) 40 meq PO BID [facility] Last Admin: 03/03/18 22:29 Dose: Not Given Prednisone (Prednisone) 10 mg PO QAM-WM [facility] Last Admin: 03/03/18 09:26 Dose: 10 mg
[2018-03-04] MEDS: Enoxaparin Sodium 60 MG/0.6 ML SYRINGE SC SCH (07:28)
[2018-03-04] MEDS: predniSONE 20 MG TAB PO SCH (08:29)
[2018-03-04] MEDS: Potassium Chloride 20 MEQ TAB PO SCH ×2 (08:29→20:25)
[2018-03-04] MEDS: Calcium Carbonate 600 MG TAB PO SCH (08:30)
[2018-03-04] MEDS: Multivitamin W/ Minerals 1 TAB PO SCH (08:31)
[2018-03-04] MEDS: Lactinex Tablet PO SCH (08:31)
[2018-03-04] MEDS: Famotidine 20 MG TAB PO SCH ×2 (08:31→20:25)
--- NOTE | 2018-03-04 09:26 | CON ---
DATE OF CONSULTATION: 03/03/2018 This is an electrophysiology consultation dictated as scribe for Dr. Avinash Morrell. REFERRING PHYSICIAN: Dr. Ez De La Rosa. REASON FOR CONSULTATION: Atrial arrhythmia, newly diagnosed. HISTORY OF PRESENT ILLNESS: Mr. Palomino is a very pleasant 72-year-old male, who presented to his do ctor's office (Dr. Armando) and was found to be in an atrial arrhythmia with RVR and was subsequently admitted to the hospital for further evaluation. He has been asymptomatic, not experience any heart racing, palpitations, weakness, shortness of breath or fatigue. Today, he still reports that he fee ls well. He denies any heart racing, palpitations, chest pain, pressure, syncope or near syncope. Serge sung has not had any stroke or stroke-like symptoms. He has had a diagnosis of pneumonia, DVT, and PE i n 12/2017. In January, he was on Xarelto for a while for his DVT and PE. At this point, he is no long er on Xarelto, but did tolerate this medication without bleeding dyscrasia. Of late, he did not have any specific symptoms that he correlated with an abnormal rhythm. He does endorse that he just in g eneral, been feeling poorly. The patient has been followed by Dr. Wang for suspicious of pulmonary mass lesion and was scheduled for repeat CT yesterday, which was partially missed as he is now in the hospital. CT angiogram was ordered and results pending PAST MEDICAL HISTORY: 1. Crohn's disease with recent flare/exacerbation. 2. Recent febrile illness. Consider pneumonia versus atypical presentation of Crohn's exacerbation, treated with antibiotics and steroids to resolution in the mid January. 3. B12 deficiency, DVT, and pulmonary embolism in 2016 with oral anticoagulation long since disconti nued. PAST SURGICAL HISTORY: Colectomy. REVIEW OF SYSTEMS: A 12-point review of systems was conducted and is negative except that listed abo ve in the HPI. HOME MEDICATIONS: Include balsalazide 750 mg 3 capsules t.i.d., prednisone 20 mg daily, aspirin 81 m g daily, vitamin D daily, calcium daily, Centrum Silver daily, and Taylor as needed. ALLERGIES: SULFA MEDICATIONS and OAK TREES. FAMILY HISTORY: Positive for cancer in his father. Negative for sudden cardiac , arrhythmia or early onset of coronary artery disease. SOCIAL HISTORY: Former smoker. No current alcohol, drug, or tobacco habituation. He is and lives with his . VITAL SIGNS: Most recent vital signs 97.6, pulse 65, respirations 17, oxygen saturation 96% on room air, and blood pressure 122/66. GENERAL: This is a well-appearing, well-groomed, and well-nourished gentleman in no apparent distres s. He is alert and oriented. His speech is clear. His affect is appropriate. HEENT: His sclerae are anicteric. EOMs are intact. NECK: Supple, without jugular venous distention or lymphadenopathy. LUNGS: Clear to auscultation bilaterally without wheezes, crackles, or rhonchi. Respirations are ev en and unlabored with good bilateral excursion. HEART: Rate is irregular and rapid. PMI is nondisplaced. ABDOMEN: Soft and nontender without palpable masses. EXTREMITIES: Warm and dry to touch without clubbing, cyanosis, or edema. NEUROLOGIC: Grossly intact and nonfocal. Gait was not assessed. DATABASE: Telemetry and EKGs were all personally reviewed and demonstrate newly found typical atrial flutter with RVR, rates vary from 70-135. Currently on a diltiazem drip and has been given IV digox in. LABORATORY DATA: Hematology stable, hemoglobin 13.5, hematocrit 41.4. Chemistry on 03/02/2018, pota ssium 4.1. Sodium 140, creatinine 0.85. TSH 1.95, serial troponins were conducted and peaked at 0.0 71. Liver enzymes were normal. Chest CTA, Impression: 1. No evidence of left atrial appendage thrombus. 2. Small right lower lobe pulmonary emboli and nonocclusive. 3. Interval enlargement. Right upper lobe lung mass with developing right hilar adenopathy. 4. Atherosclerosis. IMPRESSION: 1. Newly found typical atrial flutter with rapid ventricular response. 2. History of febrile illness, possibly pneumonia versus atypical presentation of Crohn's. 3. Concerning in a Pulmonary mass. 4. Remote history of deep venous thrombosis/pulmonary embolus. 5. CHADS-VASC score of 1 on the basis of age. PLAN: 1. CT angiogram was ordered and completed which did have acute findings, which were discussed with Maddie Wang. At this time, Dr. Wang feels that this is a finding that can be further evaluated as an o utpatient and should not delay any treatment for his atrial arrhythmias. 2. Recommend a 2-dimensional echocardiogram and possibly ESTEBAN. 3. Plan for cavotricuspid isthmus. Radiofrequency ablation tomorrow afternoon at approximately 2:00 p.m. 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 4. Continue aspirin and Lovenox at this time, hold Lovenox morning of the procedure. We will start Xarelto 20 mg tomorrow evening and post-ablation to be continued for at least 30 days following a typ ical flutter ablation. Thank you for allowing us to participate in the care of this patient.
[2018-03-04 10:49] LABS: #Basophils 0.1 thou/uL (0.0-0.2); #Eosinphils 0.1 thou/uL (0.0-0.7); #Monocytes 0.7 thou/uL (0.11-0.59); #Neutrophils 6.3 thou/uL (1.40-6.50); %Basophils 0.8 % (0.0-1.0); %Eosinophils 0.8 % (0.0-10.0); %Lymphocytes 21.8 % (21.0-51.0); %Monocytes 7.2 % (0.0-10.0); %Neutrophils 69.4 % (42.0-75.0); Hemoglobin 13.3 g/dL (14.0-18.0); Mean Corpuscular HGB CONC 32.6 g/dL (32.0-36.0); Mean Corpuscular Hemoglobin 31.4 pg (27.0-31.0); Mean Corpuscular Volume 96.2 fl (80.0-94.0); Mean Platelet Volume 6.4 fL (7.4-10.4); Platelet Count 421 thou/uL (130-400); RBC Distribution Width 16.1 % (11.5-14.5); Red Blood Cell (RBC) Count 4.22 mill/uL (4.70-6.10)
[2018-03-04 10:59] LABS: PTT 30.2 SEC (22.9-36.1)
[2018-03-04 11:07] LABS: Anion Gap 9 mmol/L (10-20); BUN (Urea Nitrogen) 9 mg/dL (8.4-25.7); Calc. Creatinine Clearance 74 mL/min (70-130); Calcium 8.8 mg/dL (7.8-10.44); Carbon Dioxide 29 mmol/L (23-31); Chloride 102 mmol/L (98-107); Estimated GFR-MDRD Greater than 90; Glucose 93 mg/dL (83-110); Potassium 3.8 mmol/L (3.5-5.1); Sodium 136 mmol/L (136-145)
[2018-03-04] MEDS ORDERED: Lidocaine 1% (PF) 30 ML VIAL ONE (13:16)
[2018-03-04] MEDS ORDERED: PROPOFOL 200 MG/20 ML VIAL ONE (13:25)
[2018-03-04] MEDS ORDERED: Midazolam HCl 2 mg/2 ml Vial ONE (13:38)
[2018-03-04] MEDS ORDERED: Fentanyl 100 MCG/2 ML VIAL ONE (13:38)
[2018-03-04] MEDS ORDERED: Heparin 10,000 UNITS/1 ML VIAL ONE (14:12)
[2018-03-04] MEDS ORDERED: Propofol 500 MG/50 ML VIAL ONE ×3 (14:25→15:41)
[2018-03-04] MEDS ORDERED: Ondansetron HCl/PF 4 MG/2 ML Vial IVP PRN (15:35)
[2018-03-04] MEDS ORDERED: Promethazine HCl 25 MG/ML VIAL IM PRN (15:35)
[2018-03-04] MEDS ORDERED: Promethazine HCl 25 MG/ML VIAL SLOW IVP PRN (15:35)
[2018-03-04] MEDS ORDERED: DOPamine 400 MG/D5W 250 ML 250 ML ONE (15:42)
[2018-03-04 19:37] LABS: Hemoglobin 12.4 g/dL (14.0-18.0); Platelet Count 399 thou/uL (130-400)
[2018-03-04 19:52] LABS: Calc. Creatinine Clearance 69 mL/min (70-130); Estimated GFR-MDRD Greater than 90
--- NOTE | 2018-03-04 20:31 | EKG ---
Test Reason : Blood Pressure : / mmHG Vent. Rate : 079 BPM Atrial Rate : 326 BPM P-R Int : 000 ms QRS Dur : 080 ms QT Int : 350 ms P-R-T Axes : 270 033 068 degrees QTc Int : 401 ms Atrial flutter with 4:1 A-V conduction Abnormal ECG When compared with ECG of 01-MAR-2018 13:34, (Unconfirmed) Criteria for Septal infarct are no longer Present ST elevation now present in Inferior leads Confirmed by CHRIS WHEAT, DR. Poon ([id number]) on 03/04/2018 8:30:46 PM Referred By: LALY Confirmed By:DR. Cleve PEREZ MD
--- NOTE | 2018-03-05 02:34 | OP ---
DATE OF PROCEDURE: 03/04/2018 ELECTROPHYSIOLOGY STUDY AND RADIOFREQUENCY ABLATION REPORT REFERRING PHYSICIAN: Ez De La Rosa M.D. REASON FOR PROCEDURE: Mr. Palomino is a 72-year-old man with prior history of hypertension, presented with atrial flutter and pulmonary nodule in the past, who presented with newly found atrial flutter with 2:[address] scan was negative for left atrial appendage clot. He is here for radio frequency ablation. PROCEDURE: The patient received propofol by Anesthesia specialist for deep sedation. After adequate level of sedation achieved, the right femoral venous area was prepped, draped, anesthetized and the right femoral vein was accessed using a multipurpose needle x2 with ultrasound guidance. Two 8-Frenc h short sheaths were introduced through which a decapolar CS catheter was advanced to the right femor al vein to the coronary sinus. A ThermoCool SF ST catheter was advanced to the RV, RA, and His bundl e location. Pacing mapping and recording was performed in each location. Baseline finding was atrial flutter with cycle length was 220 milliseconds. With overdrive pacing, l satnam post-pacing interval was noted at the lateral CS and the proximal CS and the other hand, the post -pacing interval equaled the tachycardia cycle length. Following that, cavotricuspid isthmus ablation was performed with the ThermoCool catheter after right atrial 3D map was obtained. Termination of atrial flutter was seen during the cavotricuspid isthmus ablation. Total of 5 lesions were delivered with a total duration of 2.5 minutes. Following that, the isthmus was remapped during proximal CS pacing demonstrating a cavotricuspid isthmus block unilat erally this by longest post-pacing intervals lateral to the ablation line and shorter on the more lat eral right atrium. Following that, comprehensive EP study was performed with the following findings. Baseline cycle maye gth was 760 milliseconds, CT 204, QRS 67, QT 335, AH 168, HV 59 milliseconds. AV Wenckebach cycle le ngth was 320 milliseconds, retrograde Wenckebach cycle length was 420 milliseconds. Concentric retro grade VA conduction was seen. AV zay ERP of 600/240 without dual AV zay physiology demonstrated. Burst atrial pacing did not induce any atrial arrhythmia. Dopamine was administered at this point and repeated burst atrial pacing failed to demonstrate induct ion of further arrhythmias. No significant change in the cardiac silhouette was demonstrated in the end of the case. The patient remained stable throughout the procedure. CONCLUSION: 1. Successful cavotricuspid isthmus ablation terminating atrial flutter and eliminating inducibility . 2. Normal AV zay function present. No evidence of accessory pathways noted. PLAN: Resume anticoagulation and monitor for recurrence of arrhythmias.
[2018-03-05] MEDS: predniSONE 20 MG TAB PO SCH (08:57)
[2018-03-05] MEDS: Potassium Chloride 20 MEQ TAB PO SCH (08:57)
[2018-03-05] MEDS: Lactinex Tablet PO SCH (08:58)
[2018-03-05] MEDS: Famotidine 20 MG TAB PO SCH (08:58)
[2018-03-05] MEDS: Multivitamin W/ Minerals 1 TAB PO SCH (08:59)
[2018-03-05] MEDS: Calcium Carbonate 600 MG TAB PO SCH (08:59)
[2018-03-05] MEDS ORDERED: Rivaroxaban 10 MG TAB PO SCH (09:00)
--- NOTE | 2018-03-05 10:15 | PRG ---
DATE OF SERVICE: 03/05/2018 He underwent atrial flutter ablation yesterday. He is doing well, he appears to be in sinus rhythm l ooking at the monitor. PHYSICAL EXAMINATION: VITAL SIGNS: He is afebrile, heart rate 84, respiratory rate 16. He is on room air, sats are 95, b lood pressure 101/59. LUNGS: Clear. HEART: Regular rhythm. ABDOMEN: Soft. IMPRESSION: 1. Status post atrial flutter ablation. 2. ? Lung mass. He will call my office next week so we can set up PET imaging.
--- NOTE | 2018-03-05 11:08 | PDOC.PN ---
- Subjective Encounter Start Date: 03/05/18 Encounter Start Time: 09:00 Subjective: no sob or palp -: feels good - Objective Resuscitation Status: Resuscitation Status FULL:Full Resuscitation MAR Reviewed: Yes Vital Signs & Weight: Vital Signs (12 hours) Temp Pulse Resp BP Pulse Ox 03/05/18 08:00 98.8 F 84 16 101/59 L 95 03/05/18 04:00 98.4 F 86 18 105/60 94 L Weight Admit Weight 134 lb 6.4 oz Weight 128 lb 9.6 oz I&O: 03/04/18 03/05/18 03/06/18 06:59 06:59 06:59 Intake Total 1480 480 Output Total 1994 1200 Balance -515 -720 Result Diagrams: 03/04/18 19:16 03/04/18 19:16 Phys Exam - Physical Examination HEENT: PERRLA, moist MMs Neck: no JVD, supple Respiratory: no wheezing, no rales Cardiovascular: RRR, no significant murmur Gastrointestinal: soft, non-tender, positive bowel sounds Musculoskeletal: no edema, pulses present Neurological: non-focal, moves all 4 limbs Psychiatric: normal affect, A&O x 3 Dx/Plan (1) Atrial flutter Code(s): I48.92 - UNSPECIFIED ATRIAL FLUTTER Status: Acute Comment: s/p cavotricuspid isthmus ablation 03/04/2018 (2) Lung mass Code(s): R91.8 - OTHER NONSPECIFIC ABNORMAL FINDING OF LUNG FIELD Status: Acute (3) Crohn's disease Code(s): K50.90 - CROHN'S DISEASE, UNSPECIFIED, WITHOUT COMPLICATIONS Status: Chronic Qualifiers: Digestive disease complication type: unspecified complication Comment: - Plan hemostable -: for outpt PET scan via 's office -: xarelto for min of 30 days -: in sinus rhythm post ablation -: may dc home * .
[2018-03-05 11:11] VITALS: BP 114/67; TEMP 98.3
--- NOTE | 2018-03-06 01:31 | DIS ---
DATE OF ADMISSION: 03/01/2018 DATE OF DISCHARGE: 03/05/2018 DISCHARGE DISPOSITION: To home. PRIMARY DISCHARGE DIAGNOSIS Atrial flutter, status post cavotricuspid isthmus ablation. SECONDARY DISCHARGE DIAGNOSES: Lung mass for outpatient PET scan, history of Crohn's disease. PROCEDURES DONE DURING HOSPITALIZATION: CT angio chest done showed no CT evidence of left atrial appendage thrombus, small right lower lobe pulmonary emboli which is nonocclusive, enlargement of right upper lobe lung mass with developing a right hilar adenopathy, has had cavotricuspid isthmus ablation done for atrial flutter by Dr. Avinash Morrell on 03/04/2018. Discharge H&H 12 and 38, platelet count 399. Discharge creatinine is 0.8, albumin is 2.8, troponin I was indeterminate peaking up to 0.06, CK-MB 2.3. TSH 1.95. INPATIENT CONSULTS: Dr. Avinash Morrell for Electrophysiology, Dr. Wang for Pulmonology, Dr. Gupta for Cardiology. DISCHARGE PLAN: The patient to follow up with Dr. Wang in 2 weeks for PET scan. DISCHARGE MEDICATIONS: Xarelto 20 mg p.o. daily for 30 days, prednisone 10 mg p.o. daily, multivitamin 1 tab once daily, vitamin D3 1000 units p.o. daily, calcium carbonate 600 mg p.o. daily, balsalazide disodium 750 mg 3 capsules 3 times daily, aspirin 81 mg p.o. daily. ALLERGIES: SULFA AND VANCOMYCIN. BRIEF COURSE DURING HOSPITALIZATION: The patient initially got admitted on with complaints of generalized weakness. He was also hypotensive on arrival and had demand ischemia with indeterminate troponin. He was found to have had atrial flutter with heart rates going up to 150s. He has had consultation with Dr. Gupta and Dr. Avinash Morrell. The patient had a CT angio chest done, which showed interval enlargement of the right lung mass. He has had successful cavotricuspid isthmus ablation done by Dr. Avinash Morrell on 2017 with patient being in sinus rhythm thereafter. He needs to continue Xarelto for at least 30 days post-ablative procedure. Dr. Wang has evaluated the patient in the hospital and will follow up with him in 2 weeks for outpatient PET scan to further delineate the right lung mass with lymphadenopathy. He has been cleared by all specialists for discharge today. Please see a [id number] documentation on [facility] for the day of discharge. VERONIKA
--- NOTE | 2018-03-07 00:04 | EKG ---
Test Reason : Blood Pressure : / mmHG Vent. Rate : 103 BPM Atrial Rate : 300 BPM P-R Int : 000 ms QRS Dur : 080 ms QT Int : 288 ms P-R-T Axes : 261 001 042 degrees QTc Int : 377 ms Atrial flutter with variable A-V block Septal infarct , age undetermined Abnormal ECG Confirmed by CEASAR COLÓN ([id number]), editorial director JOHNY ARRIAZA ([id number]) on 03/07/2018 12:04:23 AM Referred By: Confirmed By:CEASAR COLÓN
--- NOTE | 2018-03-07 00:04 | EKG ---
Test Reason : Blood Pressure : / mmHG Vent. Rate : 151 BPM Atrial Rate : 302 BPM P-R Int : 000 ms QRS Dur : 118 ms QT Int : 314 ms P-R-T Axes : -73 158 130 degrees QTc Int : 497 ms Atrial flutter with 2:1 A-V conduction Septal infarct , age undetermined Lateral infarct , age undetermined Abnormal ECG Confirmed by CEASAR COLÓN ([id number]), fashion editor JOHNY ARRIAZA ([id number]) on 03/07/2018 12:04:23 AM Referred By: Confirmed By:CEASAR COLÓN
== END 2018-03-05 12:44 | disposition home or self-care (01) | DRG 274 ==
LOC: ERS 13:04 → ERHOLD 14:54 → 2NO 03-02 14:44
PROVIDERS: ADMIT Internal Medicine; ATTEND Internal Medicine
PROC: 02583ZZ Destruction of Conduction Mechanism, Percutaneous Approach (ICD-10-PCS; principal; 2018-03-04)
DX: I48.91 Unspecified atrial fibrillation (principal); K50.90 Crohn's disease, unspecified, without complications; I95.9 Hypotension, unspecified; E53.8 Deficiency of other specified B group vitamins; Z86.711 Personal history of pulmonary embolism; Z79.52 Long term (current) use of systemic steroids; Z79.899 Other long term (current) drug therapy; Z79.82 Long term (current) use of aspirin; Z88.2 Allergy status to sulfonamides; Z88.1 Allergy status to other antibiotic agents; Z87.891 Personal history of nicotine dependence; R91.8 Other nonspecific abnormal finding of lung field; Z87.01 Personal history of pneumonia (recurrent)
CPT/HCPCS: 36415; 71045; 71275; 76942; 80053; 82553; 82565; 84443; 84484; 85014; 85018; 85025; 85049; 85610; 85730; 93005; 93010; 93306; 93613; 93623; 93653; 96361; 96365; 96366; 96376; C1730; C1769; J1160; J1265; J1644; J1650; J2001; J2250; J2704; J3010; J7050; J7506; J8499

== ENCOUNTER 2018-03-25 09:30 | Outpatient (CLI) | payer MEDICARE, OTHER ==
--- NOTE | 2018-03-25 12:02 | PET ---
PET CT: HISTORY: Right upper lobe lung mass with right hilar adenopathy, suspicious for lung cancer. Abnormal CT chest of 03/03/18. TECHNIQUE: PET scanning with CT attenuation correction is performed from the base of the brain through the proxi mal thighs following the intravenous administration of 12.6 mCi [id number] in the left antecubital fossa . Imaging performed after an uptake interval of 54 minutes. COMPARISON: None. CORRELATION: CT pulmonary angiogram of 03/03/18. FINDINGS: There is hypermetabolic activity in the right upper lobe lung mass noted on the CT scan with a SUV of 17. There is a hypermetabolic small right paraspinal pleural nodule with a SUV of 18 in the right up per posterior chest. There is a hypermetabolic nodule in the anterior aspect of the left upper lobe w ith a SUV of 9 and a small perihilar nodule in the left upper lobe with a SUV of 3.3. Hypermetabolic mediastinal and right hilar lymph nodes are seen with SUV of 11 in the right paratrach eal, 40 in the subcarinal, and 32 in the right hilar lymph nodes. A hypermetabolic focus is seen in the right scapula with a SUV of 13.4 with an associated tiny lytic lesion on the bone windows. No other hypermetabolic osseous abnormalities are seen. No zay hypermetabolism is seen in the neck, abdomen, or pelvis. No hypermetabolic liver or adrenal lesions are identified. There is physiologic activity in the GI and tracts, and the visualized portions of the brain. The CT scan used for attenuation correction demonstrates no evidence of pleural effusions or ascites. A calcified gallstone is present. 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 POS: [facility]
== END 2018-03-25 09:31 | disposition home or self-care (01) ==
LOC: PET 09:30
PROVIDERS: ATTEND Internal Medicine Critical Care Medicine
DX: R91.8 Other nonspecific abnormal finding of lung field (principal); C34.91 Malignant neoplasm of unspecified part of right bronchus or lung; C77.9 Secondary and unspecified malignant neoplasm of lymph node, unspecified; C78.1 Secondary malignant neoplasm of mediastinum; C78.2 Secondary malignant neoplasm of pleura; C79.51 Secondary malignant neoplasm of bone
CPT/HCPCS: 78815; A9552

== ENCOUNTER 2018-04-07 08:32 | Day surgery (SDC) | payer MEDICARE, OTHER ==
[2018-04-06 16:03] VITALS: BMI 18.8
[2018-04-07 09:19] LABS: PTT 30.6 SEC (22.9-36.1); Prothrombin Time 13.5 SEC (12.0-14.7)
[2018-04-07 09:21] LABS: #Eosinphils 0.1 thou/uL (0.0-0.7); #Lymphocytes 2.2 thou/uL (1.20-3.40); #Monocytes 0.8 thou/uL (0.11-0.59); %Basophils 0.4 % (0.0-1.0); %Eosinophils 0.6 % (0.0-10.0); %Lymphocytes 21.5 % (21.0-51.0); %Monocytes 8.3 % (0.0-10.0); %Neutrophils 69.2 % (42.0-75.0); Hemoglobin 12.3 g/dL (14.0-18.0); Mean Corpuscular HGB CONC 31.8 g/dL (32.0-36.0); Mean Corpuscular Hemoglobin 30.5 pg (27.0-31.0); Mean Platelet Volume 6.4 fL (7.4-10.4); Platelet Count 471 thou/uL (130-400); RBC Distribution Width 14.6 % (11.5-14.5); Red Blood Cell (RBC) Count 4.03 mill/uL (4.70-6.10); White Blood Cell (WBC) Count 10.2 thou/uL (4.8-10.8)
[2018-04-07 10:17] VITALS: BP 106/58; TEMP 97.3
--- NOTE | 2018-04-07 13:10 | RAD ---
TWO VIEW CHEST: Inspiration and expiratory views of the chest obtained post lung biopsy. FINDINGS: Small caliber chest tube overlies the right upper lung. Density in the right mid lung consistent with the known lung mass. Apical pleural thickening. Tiny apical pneumothorax on the right. Left lung is clear. IMPRESSION: Right chest tube with tiny residual right pneumothorax. POS: [facility]
--- NOTE | 2018-04-07 13:23 | CT ---
CT BIOPSY MASS RIGHT LUNG: CT GUIDED PLACEMENT OF RIGHT CHEST TUBE: INDICATIONS: A right lung mass has been previously described. The patient is referred for a CT directed biopsy of this right lung mass, located in the right upper lobe, along the fissure. FINDINGS: The mass in the right upper lobe was biopsied using a 20 gauge biopsy instrument through a 19 gauge g uide needle, from an anterior approach, placed under CT guidance. The tip of the needle was placed a long the anterior margin of the mass. Two 20 gauge core specimens were obtained and placed in formal in. Dr. Queen was present at CT and touch prep confirmed adequate tissue. Post procedure CT revealed a small right pneumothorax. Repeat CTs over 15 minutes revealed an enlarg ing right pneumothorax, and the patient complained of mild pressure with breathing. It was elected t o place a chest tube. The entry site was determined with CT and, under local anesthesia, an 8 Angolan chest tube was placed, from an anterior approach, under local anesthesia. The tube was attached to suction drainage. Follow-up CT after placement of the chest tube revealed re-expansion of the right lung with only mini mal residual pneumothorax. PROCEDURE NOTE: The procedure was discussed with the patient and his , including the potential risks and complica tions, including pneumothorax, and need for chest tube placement. The patient was placed supine on the CT table. A CT scan was performed. The mass was identified in the right upper lobe, and the entry site, anteriorly, was identified. The skin was then prepped and draped in a sterile manner. Local anesthesia was administered with Lidocaine and bicarbonate. A 19 gauge guide needle was introduced, with trocar in place, under CT guidance, from an anterior approach . The tip of the needle was advanced to the leaching edge of the mass. The trocar was removed, and the 20 gauge biopsy instrument was attached. Two core specimens were obtained and given to Dr. Ana Maria maldonado. Touch prep confirmed adequacy of tissue. Post procedure CT revealed a small right pneumothorax. This showed progressive enlargement with CT s cans over 15 minutes. An 8 Angolan chest tube was placed via an anterior approach, under CT guidance and local anesthesia. Post procedure CT, after insertion of chest tube and attachment to suction drainage, showed reexpansi on of the right lung with no significant residual pneumothorax. The patient was taken to holding in good condition. There were no other problems or complications. POS: [facility]
--- NOTE | 2018-04-07 14:55 | RAD ---
CHEST 2 VIEWS: COMPARISON: 04/07/18. HISTORY: Status post right lung biopsy with pneumothorax. FINDINGS: Upright expiratory and inspiratory chest radiograph were performed. There are stable lung parenchyma l opacities as well as thickening of both apical pleura. There is evidence of a small-bore right-sumaya ed chest tube. On the expiratory radiograph, there is evidence of a stable small right-sided pneumot horax. IMPRESSION: Stable small right-sided pneumothorax. POS: [facility]
== END 2018-04-07 15:22 | disposition home or self-care (01) ==
LOC: CT 08:32
PROVIDERS: ATTEND Internal Medicine Critical Care Medicine
PROC: 0BBC3ZX Excision of Right Upper Lung Lobe, Percutaneous Approach, Diagnostic (ICD-10-PCS; principal; 2018-04-07)
DX: C34.11 Malignant neoplasm of upper lobe, right bronchus or lung (principal); I10 Essential (primary) hypertension; F17.200 Nicotine dependence, unspecified, uncomplicated; M19.90 Unspecified osteoarthritis, unspecified site; Z88.2 Allergy status to sulfonamides; Z88.1 Allergy status to other antibiotic agents
CPT/HCPCS: 32405; 36415; 71045; 77012; 85025; 85610; 85730; 88305; 88313; 88333; 88341; 88342